=== PATIENT | male | born 1950 | race Caucasian/White ===

== ENCOUNTER → 2017-12-14 11:14 | Outpatient (CLI) | payer MEDICARE, OTHER, SELFPAY ==
[2017-12-14 11:35] LABS: Bacteria Urine None Seen; RBC Urine None Seen (0-5/HPF); WBC Urine None Seen (0-5/HPF)
[2017-12-14 12:05] LABS: Appearance Urine UA CLEAR; Bilirubin Urine UA NEGATIVE (NEGATIVE); Color Urine UA YELLOW; Glucose Urine UA NEGATIVE (Normal); Ketones Urine UA TRACE (NEGATIVE); Leukocyte Esterase Urine UA NEGATIVE (NEGATIVE); Nitrite Urine UA Negative (Negative); Occult Blood Urine UA NEGATIVE (Negative); Protein Urine UA NEGATIVE (Negative); Specific Gravity Urine UA 1.025 (1.000-1.035); Urobilinogen Urine UA 0.2 E.U./dL (0.2)
[2017-12-14 12:35] LABS: Add Manual Diff / Slide Review NO; Basophils Percent Auto 1.2 % (0-2); Eosinophils Percent Auto 1.9 % (2-4); Hematocrit 42.3 % (41-53); Hemoglobin 14.2 g/dL (13.5-17.5); Lymphocytes Percent Auto 23.5 % (25-40); Mean Corpuscular HGB Conc 33.7 % (30-36); Mean Corpuscular Hemoglobin 30.9 PG (26-34); Mean Corpuscular Volume 91.6 fL (80-100); Monocytes Percent Auto 9.6 % (3-14); Neutrophils Absolute Auto 3600 /uL (3000-5900); Neutrophils Percent Auto 63.8 % (50-75); Platelet Count 189 X10^3/uL (150-400); Red Blood Cell Count 4.62 X10^6/uL (4.5-5.9); Red Cell Distribution Width 13.8 % (11.6-14.8); White Blood Cell Count 5.7 X10^3/uL (4.5-11.0)
[2017-12-14 12:42] LABS: Culture Indicated Urine Cult Not Indicated; Urine Comments Microscopic Normal
[2017-12-14 13:15] LABS: BUN Creatinine Ratio 20.9 (6-22); Blood Urea Nitrogen 23 mg/dL (9-20); Calcium 9.7 mg/dL (8.4-10.2); Carbon Dioxide 25 mmol/L (22-32); Chloride 103 mmol/L (98-107); Estimated Glomerular Filt Rate > 60.0 mL/min (>60); Glucose 87 mg/dL (80-110); HEMOLYSIS < 15 (0-50); Potassium 4.5 mmol/L (3.4-5.1); Sodium 140 mmol/L (137-145)
[2017-12-14 14:23] LABS: Hemoglobin A1C% w Est Avg Glu 5.4 % (4.0-6.0)
== END ==
PROVIDERS: PCP Family Medicine; Visit Provider Orthopaedic Surgery
DX: Z01.818 Encounter for other preprocedural examination (principal); Z01.812 Encounter for preprocedural laboratory examination; N39.9 Disorder of urinary system, unspecified; R73.09 Other abnormal glucose
CPT/HCPCS: 36415; 80048; 81001; 83036; 85025; 93005

== ENCOUNTER 2018-01-30 10:19 | Inpatient (IN) | payer MEDICARE, OTHER, SELFPAY ==
[2018-01-17 07:17] VITALS: BMI 29.2
[2018-01-30] VITALS (14 sets, daily range): BP systolic 111–151; BP diastolic 65–87; PULSE 45–63; RESP 12–20; TEMP 36.1–36.8; O2SAT 92–99; BMI 29.2
--- NOTE | 2018-01-30 06:00 | DI.RAD.S_ITS ---
PROCEDURE: XR HIP W PEL IF DONE RT 2V INDICATIONS: prosthesis placement TECHNIQUE: AP pelvis and lateral view of the right hip acquired. COMPARISON: [facility] [place], [place], XR PELVIS WITH LATERAL HIP RIGHT, 01/23/2018, 16:16. FINDINGS: Bones: Patient is status post right hip arthroplasty, with hardware components in expected positions. The hip joint appears congruent. The visualized bony structures appear intact. Soft tissues: Overlying postoperative changes are noted. No suspicious soft tissue densities. IMPRESSION: 1. Expected postsurgical changes status post right hip arthroplasty. Dictated by: Mal Gonzales M.D. on 01/30/2018 at 18:00 Approved by: Mal Gonzales M.D. on 01/30/2018 at 18:01
[2018-01-30] MEDS: LACTATED RINGERS 1,000 ML 42 ML IV ×2 (11:00→14:56)
[2018-01-30] MEDS: ACETAMINOPHEN 325 MG TABLET 975 MG PO ×2 (11:13→21:38)
[2018-01-30] MEDS: PREGABALIN 75 MG CAPSULE PO (11:13)
[2018-01-30] MEDS: CELECOXIB 200 MG CAPSULE PO (11:13)
[2018-01-30] MEDS: VANCOMYCIN 1,000 MG/200 ML FROZ.PIGGY 200 MG IV (11:35)
--- NOTE | 2018-01-30 12:35 | PM.PREOP ---
Pre-operative Note Interval Note Pre-op Check: Yes History & Physical Reviewed by Physician and Yes Exam Performed Changes: No
--- NOTE | 2018-01-30 12:45 | P.OP_ITS ---
Operative Date/Time/Diagnoses Date of procedure: 01/30/18 Time of procedure: 12:54 Pre-op diagnosis: Right hip osteoarthritis Post-op diagnosis: same Procedure & Clinicians Procedure: right total hip arthroplasty Same procedure as scheduled: Yes Indications: The patient has had progressively worsening right hip pain with radiographic changes consistent with arthritis. Non-operative management has failed and the patient has requested total hip replacement. The risks, benefits and alternatives to surgery were discussed with the patient prior to proceeding. Risks discussed included, but were not limited to, failure to relieve pain, leg length discrepancy, dislocation, stiffness, infection, nerve damage, deep venous thrombosis, pulmonary embolism, stroke, coma, heart attack, permanent paralysis and , as well as the potential need for eventual revision of the prosthetic. Surgeon: Delmy Robertson Curling Machine Operator: Carmina Lott Anesthesia Type: General and Spinal Operative Notes Findings: severe right hip osteoarthritis, adequate stability Closure Type: primary Specimen(s): none sent Implants & Drains: Robertsno and Nephew R3 60, anthology 9 standard offset, +0 x 36 Estimated Blood Loss (mL): 300 Blood products transfused: none Procedure in detail: The patient was brought to the operating room. Patient was carefully positioned in the supine position. Time-out was performed and antibiotics were given. Anesthesia was induced. He was positioned in the on the table in order to allow hyperextension of the hip. Bilateral lower extremities were prepped and draped in a standard sterile fashion. An anterior incision on the right hip was made 1 fingerbreadth lateral to the anterior superior iliac spine and extended distally towards the greater trochanter. Dissection was carried out through skin and subcutaneous tissues. The skin and subcutaneous tissues were carefully injected with Marcaine with epi. Superficial hemostasis was achieved. The fascia over the tensor fascia demetrio was defined and incised with a knife. Two Allis clamps were used to grasp the fascia. Tensor fascia demetrio was retracted laterally. A gelpi retractor was placed. Dissection was carried out down along the neck. The circumflex vessels were carefully identified and cauterized with the Aqua Mantis. There was good visualization of the femoral neck. A Cobra was placed superior to the neck and the gluteus fibers were carefully stripped from that superior aspect of the capsule. A 2nd retractor was placed along the inferior aspect of the neck. The rectus insertion along the capsule was released. A 3rd retractor that was then gently placed over the rim of the acetabulum under the rectus. Capsule was carefully incised and released from the intertrochanteric line circumferentially superior to the mid sagittal line and inferiorly to the mid sagittal line until the lesser trochanter was palpable. A tag stitch was placed both in the superior and inferior limb of the capsular insertion. Along the acetabulum capsule was also released up to the mid sagittal 12:00 position. Portion of the labrum was resected. A saw was used to perform an osteotomy at the level of the intertrochanteric line and the junction of the superior femoral neck leaving approximately 1 finger breath of residual inferior neck above the lesser trochanter. A 2nd cut was made along the femoral neck at the base of the head and a napkin ring of neck was removed. Corkscrew was placed in the femoral head and the head was removed without difficulty. Retractors were then repositioned around the acetabulum. Residual labrum was resected and additional osteophytes were removed. A Reamer that was 4 mm below the templated size was placed by hand in the acetabulum and it was reamed to centralize the acetabulum. It was then reamed up to 2 under the templated size fluoroscopy was brought in to confirm the position of the reaming and depth of reaming. I reamed 1 under the anticipated size and touch the rim with line to line reaming. A trial cup was placed and noted that it was appropriately sized and fluoroscopy confirmed position and depth. The component was open and inserted without difficulty fluoroscopic imaging was used to confirm that the cup had been adequately seated and was well positioned. Neutral poly liner was placed. The cup was tested and noted to be stable. Attention was then directed to the femur. The femur was gently hyperextended additional capsular release was performed as needed in order to allow adequate visualization of the proximal femur with elevation of the femur. Patient was placed in a hyperextended slightly abducted position with maximum external rotation. Box osteotome was used to check for any residual neck as well as sclerotic bone along the trochanter. [place] pepper was placed in the femur. Additional broaching was performed. Canal finer was used to determine the alignment of the canal and position. Size 1 broach was placed. The canal was then appropriately broached up to the templated size as long as there was adequate stability of the broach and serial advancement of the broach without excessive impingement. Specific attention was directed at avoiding varus attempting to direct the distal aspect of the approach more anteriorly and avoiding excessive anteversion. Trial reduction showed acceptable range of motion, good stability, no posterior impingement, roman catholic of leg length and appropriate lateral shuck. I also hyperflexed the hip and checked that there was no impingement anteriorly and there was good stability with flexion, abduction and internal rotation. Final neutral poly was placed without difficulty. Marcaine and Exparel were injected.. The stem was placed without difficulty. Repeat trial reduction and x-ray showed acceptable overall position, length, and no evidence of the femoral fracture. Final head was placed. Wound was meticulously irrigated with normal saline. The hip was reduced and additional Exparel and Marcaine were injected. The capsule was closed with interrupted stitches. The fascia of the tensor was closed with interrupted and running Vicryl. No drain was placed. Any tensor fascia demetrio muscle that appeared to be contused or injured which was a minimal amount was carefully resected. Capsule around the tensor was injected with Exparel and Marcaine. The skin was closed with barbed stitches for the subcutaneous tissue and skin. We also used surgical glue. The wound was dressed sterilely. Brief Betadine soak was also used and was meticulously irrigated with normal saline. Patient was transferred to recovery room in satisfactory condition. Complications: none Condition: stable Disposition: Acute Care Plan for aftercare: The patient will be maintained on a standard total hip replacement protocol with weight bearing as tolerated and anterior hip precautions. The patient will receive Eliquis and sequential compression devices for DVT prophylaxis. The patient will be discharged home when safe for the home environment.
[2018-01-30] MEDS: CEFAZOLIN 2 GM/100 ML FROZ.PIGGY IV ×2 (13:05→21:42)
[2018-01-30] MEDS: LIDOCAINE 1% W/EPI INJ 20 ML INJ (13:51)
--- NOTE | 2018-01-30 14:07 | SUR.OPER ---
Supine, head on pillow, torso on pink pad positioner. Iliac crest at flex of foot end of table. Gel roll under operative hip. Both arms secured on arm boards <90 degrees abduction.
[2018-01-30] MEDS: BUPIVACAINE 0.25% W/ EPI VIAL 50 ML INJ (14:16)
[2018-01-30] MEDS: BUPIVACAINE LIPOSOME 266 MG/20 ML VIAL INJ (14:17)
[2018-01-30] MEDS: POVIDONE-IODINE 15 ML, SODIUM CHLORIDE 0.9% 250 ML TOP (14:17)
[2018-01-30] MEDS: LACTATED RINGERS 1,000 ML 125 ML IV (18:30)
[2018-01-30] MEDS: ONDANSETRON 4 MG/2 ML INJ IV (21:38)
[2018-01-30] MEDS: DOCUSATE 100 MG CAPSULE PO (21:38)
[2018-01-30] MEDS: ASPIRIN EC 81 MG TABLET PO (21:38)
[2018-01-30] MEDS: PANTOPRAZOLE 20 MG TABLET PO (21:39)
[2018-01-30] MEDS: TELMISARTAN 40 MG TABLET PO (21:39)
[2018-01-30] MEDS: MAGNESIUM OXIDE 400 MG TABLET PO (21:48)
[2018-01-31 00:34] VITALS: BP 131/76; PULSE 58; RESP 18; TEMP 36.5; O2SAT 98
[2018-01-31] MEDS: LACTATED RINGERS 1,000 ML 125 ML IV (02:15)
[2018-01-31 04:00] VITALS: BP 125/77; PULSE 63; RESP 18; TEMP 36.2; O2SAT 96
[2018-01-31] MEDS: CEFAZOLIN 2 GM/100 ML FROZ.PIGGY IV (05:16)
[2018-01-31 06:00] LABS: Hematocrit 40.6 % (41-53); Hemoglobin 13.6 g/dL (13.5-17.5)
[2018-01-31 08:00] VITALS: BP 140/81; PULSE 62; RESP 16; TEMP 36.4; O2SAT 96
[2018-01-31] MEDS: ASPIRIN EC 81 MG TABLET PO (09:11)
[2018-01-31] MEDS: MULTIVITAMIN 1 TABLET 1 TAB PO (09:11)
[2018-01-31] MEDS: ACETAMINOPHEN 325 MG TABLET 975 MG PO (09:11)
[2018-01-31] MEDS: dilTIAZem CD 180 MG CAP 360 MG PO (09:11)
[2018-01-31] MEDS: AMLODIPINE 5 MG TABLET PO (09:12)
[2018-01-31] MEDS: DOCUSATE 100 MG CAPSULE PO (09:12)
--- NOTE | 2018-01-31 09:15 | PT.IIE ---
Current Diagnoses Unilateral primary osteoarthritis, right hip (01/30/18) Surgery Performed Operation Date: 01/30/18 12:00 Actual Procedures p Total Hip Arthroplasty/Anterior Approach(Right) - Delmy Robertson MD Surgical History (Last Updated 01/17/18 @ 08:10 by Asmita Gibbons, RN) History of tonsillectomy (Acute) Hx of colonoscopy with polypectomy (Acute ~2016) Medical History (Last Updated 01/17/18 @ 08:25 by Asmita Gibbons RN) Basal cell carcinoma (Acute) Deep vein thrombosis (DVT) of distal vein of right lower extremity (Acute ~2017) Edema (Acute) GERD (gastroesophageal reflux disease) (Acute) HTN (hypertension) (Acute) Hepatitis B (Acute ~1981) Hyperlipidemia (Acute) Low back pain (Acute) Osteoarthritis (Acute) Paroxysmal A-fib (Acute) Precancerous lesion (Acute) Ruptured Bakers cyst (Acute) Scab (Acute) Spermatocele (Acute) Stroke (Acute) Physical Therapy Inpatient Evaluation/Re-Eval M1 PT/OT-IP Prior Functional Status Start: 01/31/18 12:09 Freq: NEEDED Status: Active Protocol: Document 01/31/18 09:15 AB (Rec: 01/31/18 12:33 AB [id number]) Medical Review Prior Functional Status Medical History Reviewed Yes Communication able to make needs known Mobility and Gait pt stated that he is independent with all mobilities and ambulation without AD Social History Household Members spouse Living Arrangements House Number of Floors (Floors) Two Floors Number of Stairs To Enter/Railing? 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 M2 PT-IP Current Condition Start: 01/31/18 12:09 Freq: NEEDED Status: Active Protocol: Document 01/31/18 09:15 AB (Rec: 01/31/18 12:33 [id number]) Physical Therapy Current Condition Current Condition Evaluation Date 01/31/18 Treatment Diagnosis s/p R RAQUEL anterior approach Onset Date 01/30/18 Precautions Anterior Hip Precautions No Hip Extension No Hip External Rotation M3 PT-IP Subjective Start: 01/31/18 12:09 Freq: NEEDED Status: Active Protocol: Document 01/31/18 09:15 AB (Rec: 01/31/18 12:33 AB [id number]) Subjective Physical Therapy Visit Type Type Initial Evaluation Visit Start Time 09:15 Visit Stop Time 10:20 Total Visit Minutes 65 Number of DRY KILN OPERATOR HELPER Visits 0 Physical Therapy Visit Comments Patient Comments pt agreeable to do PT Therapy Pain Assessment Pain When Pain Assessed At Rest Pain Present Pain Present Pain Reported Location Right Hip Intensity 1 Scale Used Numeric (1 - 10) Pain Management Techniques Apply Cold Timing of Activity with Medications M4 PT-IP Mobility and Gait Start: 01/31/18 12:09 Freq: NEEDED Status: Active Protocol: Document 01/31/18 09:15 AB (Rec: 01/31/18 12:33 AB [id number]) PT-Bed Mobility Assessment Supine to Sit Supine to Sit Standby Assistance Sit to Supine Sit to Supine Standby Assistance Scooting Scooting to Edge of Bed Standby Assistance PT-Transfer Assessment Sit to and From Stand Sit to and from Stand Standby Assistance Equipment Transfer Assistive Device Gait Belt Front Wheeled Walker Orthotic/Prosthetic Devices or Brace: No Transfers Transfer Destination Chair Transfer Technique Stand Step Pivot Transfer Ability Level of Assist Standby Assistance Comments Mobility Comments bed mobility training conducted. pt completed supine<>sit x 4 reps requiring SBA and cues initially but after a few reps, pt was able to complete without cues. completed sit <>stand x 5 reps with cues Gait Assessment Gait Gait Assistance Required: Standby Assistance Distance (Feet) (feet) 100 Able to Maintain Weight Bearing Status Yes During Gait Assistive Devices Assistive Device Gait Belt Front Wheeled Walker Orthotic/Prosthetic Devices or Brace: No Gait Deviations General Gait Pattern Decreased Stride Length Decreased Feet Clearance Factors Limiting Gait Function Factors Limiting Gait Function Decreased Activity Tolerance Decreased Strength Pain Poor Balance Stair Climbing Assessment Evaluation Level of Assist On Stairs Standby Assistance Devices Stair Climbing Assistive Devices Left Railing Technique/Endurance Stair Climbing Direction Ascend and Descend Stair Climbing Technique Step to Step Number of Steps Climbed 3 Query Text: Stair Climbing Set # Repetitions (reps) 2 PT-Balance Assessment Sitting Balance and Reactions Static Sitting Balance Ability Good Dynamic Sitting Balance Ability Good Standing Balance and Reactions Static Standing Balance Ability Good Dynamic Standing Balance Ability Fair M5 PT-IP Objective Assessments Start: 01/31/18 12:09 Freq: NEEDED Status: Active Protocol: Document 01/31/18 09:15 AB (Rec: 01/31/18 12:33 AB [id number]) Orientation Orientation/Cognition Level of Alertness Alert Orientation Name Age Birthday Month Date Year Day of Week Place Situation Safety Awareness Understands Safety Issues Gross Range of Motion Lower Extremity ROM Assessment Within Functional Limits Strength Lower Extremity Strength Assessment Right Impaired Knee 4-/5 Sensation Assessment Sensation Gross Sensation WNL Muscle Tone Muscle Tone WNL Yes M6 PT-IP Treatment Start: 01/31/18 12:09 Freq: NEEDED Status: Active Protocol: Document 01/31/18 09:15 AB (Rec: 01/31/18 12:33 AB [id number]) Physical Therapy Treatment Education Education Provided Precautions Weight Bearing Status Post-Op Packet Safety M7 PT-IP Assessment and Plan Start: 01/31/18 12:09 Freq: NEEDED Status: Active Protocol: Document 01/31/18 09:15 AB (Rec: 01/31/18 12:33 AB [id number]) PT Summary Assessment and Plan Potential Rehabilitation Potential Good Status of Condition at Evaluation Stable Summary Impairments Pain ROM Strength Balance Coordination Sensation Tone Cognition Bed Mobility Transfers Gait Activity Tolerance Assessment Summary pt doing well with mobility and requiring SBA with mobility. pt plans to go home this afternoon with sposue to assist him. Goals Bed Mobility Goal Independent Transfer Goal Independent Gait Goal Independent Gait Distance 200 Other Goals up/down 3 steps using L rail ascending mod I Days to Meet Goals 2 Frequency of Treatment Frequency Of Treatment Twice a Day Treatment Plan Physical Therapy Treatment Plan Bed Mobility Training Transfer Training Gait Training Therapeutic Exercise Balance Retraining Post Op Education Discharge Planning Hot or Cold Pack Neuromuscular Re-ed Coordination Retraining Manual Therapy Recommendations To Nursing Amount of Assist Needed Standby Assistance Discharge Recommendations PT Discharge Recommendations Home with Assistance Outpatient PT
--- NOTE | 2018-01-31 09:32 | P.DS_ITS ---
History of Present Illness Date Patient Seen: 01/31/18 Chief complaint: [id number] Narrative: Patient is seen bedside with Dr. Robertson status post right anterior hip replacement postop day 1. Patient is doing well his pain is well controlled as and he has been walking to the bathroom. He has not been seen by Physical therapy yet. He denies chest pain shortness of breath and calf pain. Discharge Providers Date of admission: 01/30/18 10:19 Primary care physician: Bibiana Nogueira DO Consults: 01/30/18 18:07 Consult to Discharge Planning Routine Comment: Consult to Physical Therapy Evaluate & Treat Comment: anterior precautions Physician Instructions: post op RAQUEL protocol Consult to Respiratory Therapy Evaluate & Treat Comment: Physician Instructions: Evaluate and treat Discharge provider: Fanny Pedraza PA-C Summary Discharge Diagnosis: Right hip osteoarthritis Hospital Course: Patient was admitted to the hospital status post right anterior hip replacement on 01/30/2018. Patient tolerated the procedure well no major complications. He was transferred to the surgical floor where seen by physical therapy who recommended that he be discharged home with outpatient PT. Patient was stable and ready for discharge on 01/31/2018 Status at Discharge Cognitive/behavioral status at discharge: Alert and oriented x4 Functional status at discharge: uses cane/walker Overall status at discharge: patient is progressing back to baseline Time Spent with Patient Less than 30 minutes Exam Vital Signs (past 8 hours): - 01/31/18 04:00 01/31/18 08:00 Temperature 97.1 F L 97.5 F L Pulse Rate 63 62 Respiratory Rate 18 16 Blood Pressure 125/77 140/81 Pulse Oximetry 96 96 Oxygen Delivery Method Room Air Oxygen Flow Rate 0 Narrative Exam Narrative: Well-developed well-nourished no acute distress. Patient alert and oriented x3. Examination right hip dressing is clean dry and intact with no discharge. He has full range of motion of the knee and ankle and his calves are soft and compressible. He is neurovascularly intact in this extremity. Objective Labs Result Diagrams: 01/31/18 05:40 Labs: Laboratory Results - last 24 hr 01/31/18 05:40 Hgb 13.6 Hct 40.6 L Discharge Plan Discharge Plan Patient Disposition: Home Discharge Med Rec/Prescriptions Prescriptions: New acetaminophen 325 mg Tablet 975 mg PO TID Qty: 0 RF: 0 tramadol 50 mg Tablet 50 mg PO QID PRN (Reason: Moderate Pain) Qty: 0 RF: 0 Continue telmisartan [Micardis] 40 MG tablet 40 mg PO QPM Qty: 0 RF: 0 magnesium oxide 500 MG tablet 500 mg PO BEDTIME Qty: 0 RF: 0 omeprazole 20 MG capsule,delayed release(DR/EC) 20 mg PO QPM Qty: 0 RF: 0 biotin 2,500 MCG capsule 5,000 mcg PO Q DAY Qty: 0 RF: 0 [CINNAMON] 500 mg PO BID Qty: 0 RF: 0 multivitamin [Multiple Vitamins] 1 EACH tablet 1 tab PO QDAY Qty: 0 RF: 0 [TUMERIC] Q DAY Qty: 0 RF: 0 hyalur ac-chond sul-colg II-AA [Hyaluronic Acid (chond-collgn)] 1 EACH capsule 3 cap PO QDAY Qty: 0 RF: 0 diltiazem HCl 360 mg Capsule,Extended Release 24hr 360 mg PO DAILY RF: 0 amlodipine 5 mg Tablet 5 mg PO DAILY RF: 0 rosuvastatin 5 mg Tablet 2.5 mg PO DAILY RF: 0 apixaban [Eliquis] 5 mg Tablet 5 mg PO BID RF: 0 Discontinued acetaminophen [Tylenol Extra Strength] 500 mg Tablet 1,000 mg PO Q6H PRN (Reason: Pain) RF: 0 Follow up/Referrals: Delmy Robertson MD [Physician] - 02/04/18 9:40 am (Follow up with Fanny Pedraza PA-C at the [facility] office.) Provider Discharge Instructions Diet: Diet as Tolerated Activity: Weightbearing as tolerated, use walker to ambulate, follow anterior hip precautions Cold/Heat Therapy: Apply ice to surgical site for 20 minutes at a time at least hourly while awake Skin/Wound/Dressing Care Report to your healthcare provider any signs of infection, such as:: chills, fever, night sweats, increased pain and unusual drainage Dressing: Keep dressing clean, dry, and intact. May shower with dressing on. No soaking the dressing. Visit Report/Discharge Packet Instructions: DI for Hip Replacement Visit Report Forms: Stroke Signs & Symptoms Discharge Data Primary Care Provider: Bibiana Nogueira Attending Provider: Delmy Robertson Admit Date/Time: 01/30/18 10:19 Quality VTE Deep Vein Thrombosis/Pulmonary Embolism Present on Admission: No
[2018-01-31] MEDS: TRAMADOL 50 MG TABLET PO (09:44)
--- NOTE | 2018-01-31 10:20 | PC.NURSE ---
Brayden is rating his pain 2/10 this AM on plain Tylenol. Just given Tramadol as he was starting to work w/ PT. VSS. R ant. hip aqaucel drsg. clean/dry/intact. Ortho checks WDL. Anticipate he will D/C to home later today.
[2018-01-31 12:00] VITALS: BP 128/81; PULSE 62; RESP 16; TEMP 36.4; O2SAT 96
--- NOTE | 2018-01-31 14:03 | CM.DANOTE ---
Discharge Planning/Care Management CM Discharge Assessment Start: 01/31/18 13:59 Freq: Status: Active Protocol: Document 01/31/18 14:00 (Rec: 01/31/18 14:02 [id number]) Discharge Planning Assessment Assigned Ceramic Saw Tender ROCAEL [place] Advance Directives? Yes Advance Directives on File No History Provided By Patient Medical Record Has Patient been admitted in last 30 No days? 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 Independent with ADL's Yes Is patient alert and oriented? Yes Barriers to Discharge No Discharge Plan Home Transportation Arrangement /[facility] to provie transportation. Referrals Initiated None needed Whiteboard Updated in Patient Room with Yes name and ext. # of Ceramic Saw Tender Please Provide Date Initial DC 01/31/18 Assessment Was Performed
--- NOTE | 2018-01-31 15:11 | PC.NURSE ---
Brayden was discharged in stable condition to home with via POV. Disch in w.chair. Verbalizes adq. pain control and understanding of MEAD path and all disch. teaching. He states he has already filled his prescriptions.
== END 2018-01-31 13:15 | disposition home or self-care (01) | DRG 470 ==
PROVIDERS: Admitting Provider Orthopaedic Surgery; PCP Family Medicine; Visit Provider Orthopaedic Surgery
PROC: 0SR902Z Replacement of Right Hip Joint with Metal on Polyethylene Synthetic Substitute, Open Approach (ICD-10-PCS; CPT 27130; principal; 2018-01-30 12:00)
DX: M16.11 Unilateral primary osteoarthritis, right hip (principal); I82.431 Acute embolism and thrombosis of right popliteal vein; I10 Essential (primary) hypertension; E78.5 Hyperlipidemia, unspecified; Z86.73 Personal history of transient ischemic attack (TIA), and cerebral infarction without residual deficits; Z79.01 Long term (current) use of anticoagulants; I48.0 Paroxysmal atrial fibrillation
CPT/HCPCS: 36415; 73502; 76001; 85014; 85018; 97116; 97161; 97530; C1776; C9290; J0690; J2250; J2274; J2405; J2704; J3010; J3370

== ENCOUNTER 2019-06-01 04:19 | Emergency (ER) | payer MEDICARE, OTHER, SELFPAY ==
[2018-01-30 17:40] VITALS: BMI 29.2
[2019-06-01] VITALS (7 sets, daily range): BP systolic 125–139; BP diastolic 86–114; PULSE 80–155; RESP 20–28; TEMP 36.3; O2SAT 94–97; BMI 32.8
--- NOTE | 2019-06-01 04:21 | ED.ABDPAIN ---
HPI - Abdominal Pain General Chief Complaint: Chest Pain Stated Complaint: severe epigastric pain since 12 am Time Seen by Provider: 06/01/19 04:21 Source: patient and family Mode of arrival: Ambulatory Limitations: no limitations History of Present Illness HPI narrative: 69-year-old male nonsmoker with history of AFib and hypertension presents with his in the chief complaint of a severe epigastric pressure that started at about midnight. He denies provocation, palliation or radiation. He denies associated symptoms such as shortness of breath, nausea, vomiting or others. He denies any history of the same. He denies any changes in his medications or missed doses for quite sometime. He denies recent travel or injury. Patient tried taking some antacids as well as Pepto which provided no relief MD complaint: abdominal pain Onset (ago): hour(s) Pain Consistency: constant Location: epigastric Quality: aching Radiation: none Relieving factors: nothing Exacerbating factors: nothing Associated symptoms: denies other symptoms Related Data Home Medications Medication Instructions Recorded Confirmed [CINNAMON] 500 mg PO BID #0 03/08/17 01/17/18 [TUMERIC] Q DAY #0 03/08/17 biotin 5,000 mcg PO Q DAY #0 03/08/17 01/30/18 magnesium oxide 500 mg PO BEDTIME #0 03/08/17 01/17/18 multivitamin [Multiple Vitamins] 1 tab PO QDAY #0 03/08/17 01/17/18 omeprazole 20 mg PO QPM #0 03/08/17 01/30/18 telmisartan [Micardis] 40 mg PO QPM #0 03/08/17 01/30/18 hyalur ac-chond sul-colg II-AA 3 cap PO QDAY #0 06/03/17 01/17/18 [Hyaluronic Acid (chond-collgn)] amlodipine 5 mg PO DAILY 01/17/18 01/30/18 apixaban [Eliquis] 5 mg PO BID 01/17/18 01/30/18 diltiazem HCl 360 mg PO DAILY 01/17/18 01/30/18 rosuvastatin 2.5 mg PO DAILY 01/17/18 01/30/18 Previous Rx's Medication Instructions Recorded acetaminophen 975 mg PO TID #0 tab 01/31/18 tramadol 50 mg PO QID PRN #0 tab 01/31/18 Allergies Allergy/AdvReac Type Severity Reaction Status Date / Time [id number]-[id number] Reductase AdvReac Severe Muscle Verified 01/17/18 07:44 Inhibitor cramps, myalgia Review of Systems Constitutional Constitutional: Denies chills, Denies fatigue, Denies fever(s), Denies frequent falls, Denies lethargy and Denies weakness Eyes Eyes: Denies change in vision, Denies eye discharge, Denies irritation and Denies loss of vision ENT Ears, Nose, Mouth, and Throat: Denies change in voice, Denies dizziness, Denies neck pain, Denies sore throat and Denies throat swelling Cardiovascular Cardiovascular: Reports chest pain, Denies irregular heart rhythm, Denies lightheadedness, Denies palpitations, Denies dyspnea, Denies dyspnea on exertion and Denies orthopnea Respiratory Respiratory: Denies cough, Denies dyspnea, Denies dyspnea on exertion and Denies wheezing Gastrointestinal Gastrointestinal: Reports abdominal pain, Denies change in bowel habits, Denies diarrhea, Denies nausea and Denies vomiting Genitourinary Genitourinary: Denies hematuria, Denies flank pain, Denies urinary incontinence and Denies urinary urgency Musculoskeletal Musculoskeletal: Denies back pain, Denies muscle weakness, Denies neck pain, Denies numbness and Denies tingling Integumentary/Breasts Skin/Breast: Denies pruritus, Denies erythema, Denies rash and Denies wounds Neurologic Neurologic: Denies behavioral changes, Denies confusion, Denies dizziness, Denies frequent falls, Denies loss of vision, Denies numbness, Denies tingling and Denies weakness Psychiatric Psychiatric: Denies anxiety, Denies behavioral changes, Denies confusion, Denies depression, Denies homicidal ideation and Denies suicidal ideation Endocrine Endocrine: Denies fatigue, Denies flushing and Denies palpitations Hematologic/Lymphatic Hematologic/Lymphatic: Denies easy bruising Allergic/Immunologic Allergic/Immunologic: Denies urticaria, Denies throat swelling and Denies wheezing Patient History Medical History (Updated 06/01/19 @ 06:26 by Aldair Armando DO) Basal cell carcinoma (Acute) Deep vein thrombosis (DVT) of distal vein of right lower extremity (Acute ~2017) Edema (Acute) GERD (gastroesophageal reflux disease) (Acute) Hepatitis B (Acute ~1981) HTN (hypertension) (Acute) Hyperlipidemia (Acute) Low back pain (Acute) Osteoarthritis (Acute) Paroxysmal A-fib (Acute) Precancerous lesion (Acute) Ruptured Bakers cyst (Acute) Scab (Acute) Spermatocele (Acute) Stroke (Acute) Surgical History (Updated 01/17/18 @ 08:10 by Asmita Gibbons RN) History of tonsillectomy (Acute) Hx of colonoscopy with polypectomy (Acute ~2016) Social History household members: spouse and family Smoking Status: Never smoker alcohol intake: current Smoking Status: Never smoker alcohol intake frequency: a few times a week Substance Use Type: does not use Exam Narrative Exam Narrative: GENERAL: [69] year old patient appears stated age. Well-nourished, well-developed patient, in mild distress. HEAD: Atraumatic. Normocephalic. EYES: Pupils equal round and reactive. Extraocular motions intact. No scleral icterus. No injection or drainage. ENT: Nose without bleeding, purulent drainage. Throat without erythema, tonsillar hypertrophy or exudate. Airway patent. NECK: Trachea midline. Non tender CARDIOVASCULAR: Tachycardic and irregular rhythm without murmurs, gallops, or rubs. RESPIRATORY: Clear to auscultation. Breath sounds equal bilaterally. No wheezes, rales, or rhonchi. GASTROINTESTINAL: Abdomen soft, non-tender, nondistended. EXTREMITIES: No edema or joint tenderness. BACK: Nontender without deformity or crepitance. No flank tenderness. NEURO: AOx3. SKIN: No rash or erythema of visible areas Initial Vital Signs Initial Vital Signs: Vital Signs Temperature 97.4 F L 06/01/19 04:25 Pulse Rate 155 H 06/01/19 04:25 Respiratory Rate 28 H 06/01/19 04:25 Blood Pressure 125/102 H 06/01/19 04:25 Pulse Oximetry 97 06/01/19 04:25 Course Course Course Narrative: Patient's discomfort rather quickly with seems to be closely linked to his rapid AFib. He is a good candidate for electrical cardioversion and was consented. He was given Cardizem 10 mg IV which slowed his rate into the 80s and 90s. A modified Valsalva maneuver was performed which did not convert him. He was watched for 1 hour after the Cardizem was pushed and we elected not to perform cardioversion because his heart rate stayed in the 80s and 90s and he remained completely asymptomatic once his rate was controlled. 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 Orders Ordered: ED Orders 06/01/19 04:25 XR chest 1V Stat EKG-12 Lead Stat 06/01/19 05:17 Complete Blood Count AUTO DIFF Stat Comprehensive Metabolic Panel Stat Lipase Stat Troponin & CK Cardiac Panel Stat Sodium Chloride (Normal Saline 0.9%) 1,000 mls @ 150 mls/hr IV CONT JOVITA Last Admin: 06/01/19 04:41 Dose: 150 mls/hr Documented by: PAULINA Discontinued Medications Aspirin (Aspirin Chew) 324 mg PO NOW ONE Stop: 06/01/19 04:26 Last Admin: 06/01/19 04:41 Dose: 324 mg Documented by: PAULINA Diltiazem HCl (Cardizem) 10 mg IV NOW ONE Stop: 06/01/19 04:50 Last Admin: 06/01/19 05:18 Dose: 10 mg Documented by: CAREY Ketorolac Tromethamine (Toradol) 60 mg IM NOW ONE Stop: 06/01/19 04:32 Last Admin: 06/01/19 06:14 Dose: Not Given Documented by: PAULINA Vital Signs Vital signs: Vital Signs - 8 hr 06/01/19 04:25 06/01/19 04:30 06/01/19 05:00 Temperature 97.4 F L Pulse Rate 155 H 127 H 115 H Respiratory Rate 28 H 23 23 Blood Pressure 125/102 H Blood Pressure [Right Arm] 138/114 H 133/94 H Pulse Oximetry 97 97 96 06/01/19 05:18 06/01/19 05:30 06/01/19 06:00 Temperature Pulse Rate 117 H 91 H 86 Respiratory Rate 22 21 Blood Pressure 133/94 H Blood Pressure [Right Arm] 136/86 139/86 Pulse Oximetry 96 94 06/01/19 06:07 Temperature Pulse Rate 80 Respiratory Rate 20 Blood Pressure Blood Pressure [Right Arm] 139/86 Pulse Oximetry 96 MDM - Abdominal Pain Lab Data Result diagrams: 06/01/19 05:17 06/01/19 05:17 Labs: Lab Results 06/01/19 06/01/19 Range/Units 05:17 05:17 WBC 6.0 (4.5-11.0) X10^3/uL RBC 4.87 (4.5-5.9) X10^6/uL Hgb 15.1 (13.5-17.5) g/dL Hct 44.1 (41-53) % MCV 90.5 (80-100) fL MCH 30.9 (26-34) PG MCHC 34.2 (30-36) % RDW 14.1 (11.6-14.8) % Plt Count 174 (150-400) X10^3/uL Neut % (Auto) 65.8 (50-75) % Lymph % (Auto) 18.2 L (25-40) % [place] % (Auto) 8.4 (3-14) % Eos % (Auto) 2.6 (2-4) % Baso % (Auto) 5.0 H (0-2) % Neut # (Auto) 4000 (9548-3794) /uL Lymph # (Auto) 1100 (6341-2060) /uL [place] # (Auto) 500 (0-900) /uL Eos # (Auto) 200 (0-450) /uL Baso # (Auto) 300 H (0-100) /uL Sodium 137 (137-145) mmol/L Potassium 4.3 (3.4-5.1) mmol/L Chloride 104 (98-107) mmol/L Carbon Dioxide 21 L (22-32) mmol/L BUN 22 H (9-20) mg/dL Creatinine 1.10 (0.66-1.25) mg/dL Estimated GFR > 60.0 (>60) mL/min BUN/Creatinine Ratio 20.0 (6-22) Glucose 121 H (80-110) mg/dL Calcium 9.4 (8.4-10.2) mg/dL Total Bilirubin 0.4 (0.2-1.3) mg/dL AST 28 (17-59) IU/L ALT 30 (<50) IU/L Alkaline Phosphatase 92 (38-126) U/L Total Creatine Kinase 121 (55-170) U/L CK-MB (CK-2) 1.84 (<2.37) ng/mL CK-MB (CK-2) Rel Index 1.5 (1.5-5.0) % Troponin I < 0.012 (0.01-0.034) ng/mL Total Protein 7.0 (6.3-8.2) g/dL Albumin 4.3 (3.5-5.0) g/dL Globulin 2.7 (1.7-4.1) g/dL Albumin/Globulin Ratio 1.6 (1.0-2.8) Lipase 32 (23-300) U/L ECG Data Interpretation: Atrial fibrillation in the 140s without signs of ischemia such as ST depression or elevation. Discharge Plan Departure Patient Disposition: Home Clinical Impression: Atrial fibrillation with rapid ventricular response Instructions: DI for Atrial Fibrillation Activity Restrictions/Additional Instructions: *You have been diagnosed with [rapid atrial fibrillation with chest pain] *What to do: *Take medications as directed *Follow up with your primary care provider in 2-3 days, call for an appointment. Let them know you were seen in the Emergency Department and that we ask that you be seen in follow up *Return to ER if you should have any new, worsening or concerning symptoms, such as [return of chest pain, shortness of breath, dizziness, lightheadedness or other bothersome symptoms] Prescriptions: No Action telmisartan [Micardis] 40 MG tablet 40 mg PO QPM Qty: 0 RF: 0 magnesium oxide 500 MG tablet 500 mg PO BEDTIME Qty: 0 RF: 0 omeprazole 20 MG capsule,delayed release(DR/EC) 20 mg PO QPM Qty: 0 RF: 0 biotin 2,500 MCG capsule 5,000 mcg PO Q DAY Qty: 0 RF: 0 [CINNAMON] 500 mg PO BID Qty: 0 RF: 0 multivitamin [Multiple Vitamins] 1 EACH tablet 1 tab PO QDAY Qty: 0 RF: 0 [TUMERIC] Q DAY Qty: 0 RF: 0 hyalur ac-chond sul-colg II-AA [Hyaluronic Acid (chond-collgn)] 1 EACH capsule 3 cap PO QDAY Qty: 0 RF: 0 diltiazem HCl 360 mg Capsule,Extended Release 24hr 360 mg PO DAILY RF: 0 amlodipine 5 mg Tablet 5 mg PO DAILY RF: 0 rosuvastatin 5 mg Tablet 2.5 mg PO DAILY RF: 0 apixaban [Eliquis] 5 mg Tablet 5 mg PO BID RF: 0 acetaminophen 325 mg Tablet 975 mg PO TID Qty: 0 RF: 0 tramadol 50 mg Tablet 50 mg PO QID PRN (Reason: Moderate Pain) Qty: 0 RF: 0 Referrals: Bibiana Nogueira DO [Primary Care Provider] -
--- NOTE | 2019-06-01 04:25 | DI.RAD.S_ITS ---
PROCEDURE: XR CHEST 1V INDICATIONS: chest pain TECHNIQUE: One view of the chest was acquired. COMPARISON: None. FINDINGS: Surgical changes and devices: None. Lungs and pleura: Lung volumes are decreased bilaterally. Minimal left basilar opacities likely representing atelectasis. No pneumothorax. Possible small left pleural effusion as suggested by hazy opacity of the left costophrenic angle. Mediastinum: Mediastinal contours appear normal. Heart size is normal. Bones and chest wall: No suspicious bony lesions. Overlying soft tissues appear unremarkable. IMPRESSION: Decreased lung volumes with minimal left basilar opacities, favored to represent atelectasis. Airspace disease not excluded. Possible small left pleural effusion. Dictated by: Fly Guajardo M.D. on 06/01/2019 at 9:52 Approved by: Fly Guajardo M.D. on 06/01/2019 at 10:58
[2019-06-01] MEDS: ASPIRIN 81 MG CHEW TAB 324 MG PO (04:41)
[2019-06-01] MEDS: SODIUM CHLORIDE 0.9% 1,000 ML 150 ML IV (04:41)
[2019-06-01] MEDS: dilTIAZem 5 MG/ML SDV 10 MG IV (05:18)
[2019-06-01 05:44] LABS: Add Manual Diff / Slide Review NO; Basophils Absolute Auto 300 /uL (0-100); Eosinophils Absolute Auto 200 /uL (0-450); Eosinophils Percent Auto 2.6 % (2-4); Hematocrit 44.1 % (41-53); Hemoglobin 15.1 g/dL (13.5-17.5); Lymphocytes Absolute Auto 1100 /uL (1100-4500); Lymphocytes Percent Auto 18.2 % (25-40); Mean Corpuscular HGB Conc 34.2 % (30-36); Mean Corpuscular Hemoglobin 30.9 PG (26-34); Mean Corpuscular Volume 90.5 fL (80-100); Monocytes Absolute Auto 500 /uL (0-900); Monocytes Percent Auto 8.4 % (3-14); Neutrophils Absolute Auto 4000 /uL (1500-7000); Neutrophils Percent Auto 65.8 % (50-75); Platelet Count 174 X10^3/uL (150-400); Red Blood Cell Count 4.87 X10^6/uL (4.5-5.9); Red Cell Distribution Width 14.1 % (11.6-14.8)
[2019-06-01 05:49] LABS: Alanine Aminotransferase 30 IU/L (<50); Albumin 4.3 g/dL (3.5-5.0); Albumin Globulin Ratio 1.6 (1.0-2.8); Alkaline Phosphatase 92 U/L (38-126); Aspartate Aminotransferase 28 IU/L (17-59); Bilirubin Total 0.4 mg/dL (0.2-1.3); Blood Urea Nitrogen 22 mg/dL (9-20); Calcium 9.4 mg/dL (8.4-10.2); Carbon Dioxide 21 mmol/L (22-32); Chloride 104 mmol/L (98-107); Creatine Kinase 121 U/L (55-170); Estimated Glomerular Filt Rate > 60.0 mL/min (>60); Globulin 2.7 g/dL (1.7-4.1); Glucose 121 mg/dL (80-110); HEMOLYSIS 21 (0-50); Lipase 32 U/L (23-300); Potassium 4.3 mmol/L (3.4-5.1); Sodium 137 mmol/L (137-145)
[2019-06-01 06:00] LABS: Troponin I < 0.012 ng/mL (0.01-0.034)
[2019-06-01 06:04] LABS: CKMB % Relative Index 1.5 % (1.5-5.0); Creatine Kinase MB 1.84 ng/mL (<2.37)
== END 2019-06-01 06:35 | disposition home or self-care (01) ==
PROVIDERS: Emergency Provider Emergency Medicine; PCP Family Medicine
DX: I48.20 Chronic atrial fibrillation, unspecified (principal); R10.13 Epigastric pain; R07.9 Chest pain, unspecified
CPT/HCPCS: 71045; 80053; 82550; 82553; 83690; 84484; 85025; 93005; 96361; 96374; 99284; 99285

== ENCOUNTER 2019-07-13 02:23 | Emergency (ER) | payer MEDICARE, OTHER, SELFPAY ==
[2018-01-30 17:40] VITALS: BMI 29.2
[2019-07-13] VITALS (10 sets, daily range): BP systolic 99–168; BP diastolic 67–115; PULSE 69–160; RESP 16–24; TEMP 36.4; O2SAT 94–98; BMI 32.1
--- NOTE | 2019-07-13 02:29 | ED_ITS ---
HPI - Chest Pain General Chief Complaint: Chest Pain Stated Complaint: chest pain Time Seen by Provider: 07/13/19 02:23 Source: patient and family Mode of arrival: Ambulatory Limitations: no limitations History of Present Illness HPI narrative: 69-year-old male nonsmoker with history of rapid atrial fibrillation on Eliquis presents with his son and a chief complaint of a sudden onset palpitations and some epigastric discomfort which started at about 9:00 p.m. tonight. He states he took his medications but later in the day than he normally would because he does not work tomorrow. He is not dizzy nor weak or l ightheaded. He admits to palpitations but denies significant chest pain or shortness of breath. He states he has not missed any of his doses of Eliquis in the past 3 weeks but is very sure that his symptoms started only about 6 hours ago. MD complaint: chest pain Onset (ago): hour(s) Duration: constant Onset: during rest Pain location: epigastric Severity: moderate Related Data Home Medications Medication Instructions Recorded Confirmed [CINNAMON] 500 mg PO BID #0 03/08/17 01/17/18 [TUMERIC] Q DAY #0 03/08/17 biotin 5,000 mcg PO Q DAY #0 03/08/17 01/30/18 magnesium oxide 500 mg PO BEDTIME #0 03/08/17 01/17/18 multivitamin [Multiple Vitamins] 1 tab PO QDAY #0 03/08/17 01/17/18 omeprazole 20 mg PO QPM #0 03/08/17 01/30/18 telmisartan [Micardis] 40 mg PO QPM #0 03/08/17 01/30/18 hyalur ac-chond sul-colg II-AA 3 cap PO QDAY #0 06/03/17 01/17/18 [Hyaluronic Acid (chond-collgn)] amlodipine 5 mg PO DAILY 01/17/18 01/30/18 apixaban [Eliquis] 5 mg PO BID 01/17/18 01/30/18 diltiazem HCl 360 mg PO DAILY 01/17/18 01/30/18 rosuvastatin 2.5 mg PO DAILY 01/17/18 01/30/18 Previous Rx's Medication Instructions Recorded acetaminophen 975 mg PO TID #0 tab 01/31/18 tramadol 50 mg PO QID PRN #0 tab 01/31/18 Allergies Allergy/AdvReac Type Severity Reaction Status Date / Time [id number]-Ita Reductase AdvReac Severe Muscle Verified 01/17/18 07:44 Inhibitor cramps, myalgia Review of Systems Constitutional Constitutional: Denies chills, Denies fatigue, Denies fever(s), Denies frequent falls, Denies lethargy and Denies weakness Eyes Eyes: Denies change in vision, Denies eye discharge, Denies irritation and Denies loss of vision ENT Ears, Nose, Mouth, and Throat: Denies change in voice, Denies dizziness, Denies neck pain, Denies sore throat and Denies throat swelling Cardiovascular Cardiovascular: Denies chest pain, Reports irregular heart rhythm, Denies lightheadedness, Reports palpitations, Denies dyspnea, Denies dyspnea on exertion and Denies orthopnea Respiratory Respiratory: Denies cough, Denies dyspnea, Denies dyspnea on exertion and Denies wheezing Gastrointestinal Gastrointestinal: Denies abdominal pain, Denies change in bowel habits, Denies diarrhea, Denies nausea and Denies vomiting Genitourinary Genitourinary: Denies hematuria, Denies flank pain, Denies urinary incontinence and Denies urinary urgency Musculoskeletal Musculoskeletal: Denies back pain, Denies muscle weakness, Denies neck pain, Denies numbness and Denies tingling Integumentary/Breasts Skin/Breast: Denies pruritus, Denies erythema, Denies rash and Denies wounds Neurologic Neurologic: Denies behavioral changes, Denies confusion, Denies dizziness, Denies frequent falls, Denies loss of vision, Denies numbness, Denies tingling and Denies weakness Psychiatric Psychiatric: Denies anxiety, Denies behavioral changes, Denies confusion, Denies depression, Denies homicidal ideation and Denies suicidal ideation Endocrine Endocrine: Denies fatigue, Denies flushing and Reports palpitations Hematologic/Lymphatic Hematologic/Lymphatic: Denies easy bruising Allergic/Immunologic Allergic/Immunologic: Denies urticaria, Denies throat swelling and Denies wheezing Patient History Medical History Basal cell carcinoma (Acute) Deep vein thrombosis (DVT) of distal vein of right lower extremity (Acute ~2017) Edema (Acute) GERD (gastroesophageal reflux disease) (Acute) Hepatitis B (Acute ~1981) HTN (hypertension) (Acute) Hyperlipidemia (Acute) Low back pain (Acute) Osteoarthritis (Acute) Paroxysmal A-fib (Acute) Precancerous lesion (Acute) Ruptured Bakers cyst (Acute) Scab (Acute) Spermatocele (Acute) Stroke (Acute) Surgical History History of tonsillectomy (Acute) Hx of colonoscopy with polypectomy (Acute ~2017) Social History household members: spouse and family Smoking Status: Never smoker alcohol intake: current Smoking Status: Never smoker alcohol intake frequency: a few times a week Substance Use Type: does not use Exam Narrative Exam Narrative: GENERAL: [69] year old patient appears stated age. Well- nourished, well-developed patient, in mild distress. HEAD: Atraumatic. Normocephalic. EYES: Pupils equal round and reactive. Extraocular motions intact. No scleral icterus. No injection or drainage. ENT: Nose without bleeding, purulent drainage. Throat without erythema, tonsillar hypertrophy or exudate. Airway patent. NECK: Trachea midline. Non tender CARDIOVASCULAR: Tachycardic and irregular rhythm without murmurs, gallops, or r ubs. RESPIRATORY: Clear to auscultation. Breath sounds equal bilaterally. No wheezes, rales, or rhonchi. GASTROINTESTINAL: Abdomen soft, non-tender, nondistended. EXTREMITIES: No edema or joint tenderness. BACK: Nontender without deformity or crepitance. No flank tenderness. NEURO: AOx3. SKIN: No rash or erythema of visible areas Initial Vital Signs Initial Vital Signs: Vital Signs Temperature 97.6 F 07/13/19 02:36 Pulse Rate 160 H 07/13/19 02:36 Respiratory Rate 18 07/13/19 02:36 Blood Pressure 168/115 H 07/13/19 02:36 Pulse Oximetry 96 07/13/19 02:36 Procedures Cardioversion Consent Signed: Yes Indication: rapid Afib Stability: Stable Number of attempts (shocks): 1 Joules used: 150 Cardiac rhythm post-cardioversion: NSR Procedural Sedation Patient Age: Patient is 5yrs or older Consent signed: Yes Time out performed: Yes Indication: cardioversion ASA Class: II Mallampati Airway Classification: Class II Preparation: quality assurance monitor applied, pulse oximeter, capnometry used, supplemental O2 applied, suction/airway equipment at bedside and IV secured IV Propofol dose (mg): 60 Intraservice time/total sedation time (min): 10 ED Sedation Level: Moderate (Concious) Patient Tolerated Procedure: Well Complications: none Course Orders Ordered: ED Orders 07/13/19 EKG-12 Lead Stat EKG-12 Lead Stat 07/13/19 02:40 Complete Blood Count AUTO DIFF Stat Comprehensive Metabolic Panel Stat Lipase Stat Troponin & CK Cardiac Panel Stat Sodium Chloride (Normal Saline 0.9%) 1,000 mls @ 150 mls/hr IV CONT JOVITA Last Admin: 07/13/19 03:07 Dose: 150 mls/hr Documented by: PAULINA Discontinued Medications Diltiazem HCl (Cardizem) 10 mg IV NOW ONE Stop: 07/13/19 02:45 Last Admin: 07/13/19 03:08 Dose: 10 mg Documented by: PAULINA Propofol (Diprivan) 105 mg 1 mg/kg (105 mg) IV NOW ONE Stop: 07/13/19 05:13 Last Admin: 07/13/19 05:41 Dose: 70 mg Documented by: CAREY Vital Signs Vital signs: Vital Signs - 8 hr 07/13/19 02:36 07/13/19 03:08 07/13/19 03:30 Temperature 97.6 F Pulse Rate 160 H 143 H 115 H Respiratory Rate 18 16 Blood Pressure 168/115 H 146/82 H Blood Pressure [Left Arm] 99/67 Pulse Oximetry 96 97 07/13/19 05:29 07/13/19 05:30 07/13/19 05:35 Temperature Pulse Rate 139 H 120 H 135 H Respiratory Rate 18 20 21 Blood Pressure Blood Pressure [Left Arm] 143/91 H 146/92 H 115/72 Pulse Oximetry 97 98 94 07/13/19 05:37 07/13/19 05:40 07/13/19 05:50 Temperature Pulse Rate 73 73 69 Respiratory Rate 18 22 24 Blood Pressure Blood Pressure [Left Arm] 118/75 118/79 122/84 Pulse Oximetry 94 98 98 MDM - Chest Pain Lab Data Result diagrams: 07/13/19 02:40 07/13/19 02:40 Labs: Lab Results 02/17/20 02/17/20 Range/Units 02:40 02:40 WBC 7.8 (4.5-11.0) X10^3/uL RBC 4.91 (4.5-5.9) X10^6/uL Hgb 15.2 (13.5-17.5) g/dL Hct 44.7 (41-53) % MCV 91.0 (80-100) fL MCH 30.9 (26-34) PG MCHC 34.0 (30-36) % RDW 14.5 (11.6-14.8) % Plt Count 185 (150-400) X10^3/uL Neut % (Auto) 61.2 (50-75) % Lymph % (Auto) 25.6 (25-40) % [place] % (Auto) 6.6 (3-14) % Eos % (Auto) 2.4 (2-4) % Baso % (Auto) 4.2 H (0-2) % Neut # (Auto) 4800 (5011-7141) /uL Lymph # (Auto) 2000 (1035-4496) /uL [place] # (Auto) 500 (0-900) /uL Eos # (Auto) 200 (0-450) /uL Baso # (Auto) 300 H (0-100) /uL Sodium 140 (137-145) mmol/L Potassium 4.2 (3.4-5.1) mmol/L Chloride 106 (98-107) mmol/L Carbon Dioxide 22 (22-32) mmol/L BUN 26 H (9-20) mg/dL Creatinine 1.20 (0.66-1.25) mg/dL Estimated GFR > 60.0 (>60) mL/min BUN/Creatinine Ratio 21.7 (6-22) Glucose 121 H (80-110) mg/dL Calcium 9.6 (8.4-10.2) mg/dL Total Bilirubin 0.5 (0.2-1.3) mg/dL AST 28 (17-59) IU/L ALT 31 (<50) IU/L Alkaline Phosphatase 118 (38-126) U/L Total Creatine Kinase 134 (55-170) U/L CK-MB (CK-2) 1.49 (<2.37) ng/mL CK-MB (CK-2) Rel Index 1.1 L (1.5-5.0) % Troponin I < 0.012 (0.01-0.034) ng/mL Total Protein 7.8 (6.3-8.2) g/dL Albumin 4.7 (3.5-5.0) g/dL Globulin 3.1 (1.7-4.1) g/dL Albumin/Globulin Ratio 1.5 (1.0-2.8) Lipase 48 (23-300) U/L ECG Data Interpretation: Rapid AFib, 145, no ST segmental elevations or depressions. Discharge Plan Departure Patient Disposition: Home Clinical Impression: Atrial fibrillation with rapid ventricular response Activity Restrictions/Additional Instructions: *You have been diagnosed with [rapid atrial fibrillation, with procedural sedation and cardioversion] *What to do: * continue to take medications as directed *Follow up with your primary care provider in 2-3 days, call for an appointment. Let them know you were seen in the Emergency Department and that we ask that you be seen in follow up *Return to ER if you should have any new, worsening or concerning symptoms Prescriptions: No Action telmisartan [Micardis] 40 MG tablet 40 mg PO QPM Qty: 0 RF: 0 magnesium oxide 500 MG tablet 500 mg PO BEDTIME Qty: 0 RF: 0 omeprazole 20 MG capsule,delayed release(DR/EC) 20 mg PO QPM Qty: 0 RF: 0 biotin 2,500 MCG capsule 5,000 mcg PO Q DAY Qty: 0 RF: 0 [CINNAMON] 500 mg PO BID Qty: 0 RF: 0 multivitamin [Multiple Vitamins] 1 EACH tablet 1 tab PO QDAY Qty: 0 RF: 0 [TUMERIC] Q DAY Qty: 0 RF: 0 hyalur ac-chond sul-colg II-AA [Hyaluronic Acid (chond-collgn)] 1 EACH capsule 3 cap PO QDAY Qty: 0 RF: 0 diltiazem HCl 360 mg Capsule,Extended Release 24hr 360 mg PO DAILY RF: 0 amlodipine 5 mg Tablet 5 mg PO DAILY RF: 0 rosuvastatin 5 mg Tablet 2.5 mg PO DAILY RF: 0 apixaban [Eliquis] 5 mg Tablet 5 mg PO BID RF: 0 acetaminophen 325 mg Tablet 975 mg PO TID Qty: 0 RF: 0 tramadol 50 mg Tablet 50 mg PO QID PRN (Reason: Moderate Pain) Qty: 0 RF: 0 Referrals: Bibiana Nogueira DO [Primary Care Provider] -
[2019-07-13 02:54] LABS: Add Manual Diff / Slide Review NO; Basophils Absolute Auto 300 /uL (0-100); Basophils Percent Auto 4.2 % (0-2); Eosinophils Absolute Auto 200 /uL (0-450); Eosinophils Percent Auto 2.4 % (2-4); Hematocrit 44.7 % (41-53); Hemoglobin 15.2 g/dL (13.5-17.5); Lymphocytes Absolute Auto 2000 /uL (1100-4500); Lymphocytes Percent Auto 25.6 % (25-40); Mean Corpuscular Hemoglobin 30.9 PG (26-34); Monocytes Absolute Auto 500 /uL (0-900); Monocytes Percent Auto 6.6 % (3-14); Neutrophils Absolute Auto 4800 /uL (1500-7000); Neutrophils Percent Auto 61.2 % (50-75); Platelet Count 185 X10^3/uL (150-400); Red Blood Cell Count 4.91 X10^6/uL (4.5-5.9); Red Cell Distribution Width 14.5 % (11.6-14.8); White Blood Cell Count 7.8 X10^3/uL (4.5-11.0)
[2019-07-13 02:58] LABS: Alanine Aminotransferase 31 IU/L (<50); Albumin 4.7 g/dL (3.5-5.0); Albumin Globulin Ratio 1.5 (1.0-2.8); Alkaline Phosphatase 118 U/L (38-126); Aspartate Aminotransferase 28 IU/L (17-59); BUN Creatinine Ratio 21.7 (6-22); Bilirubin Total 0.5 mg/dL (0.2-1.3); Blood Urea Nitrogen 26 mg/dL (9-20); Calcium 9.6 mg/dL (8.4-10.2); Carbon Dioxide 22 mmol/L (22-32); Chloride 106 mmol/L (98-107); Creatine Kinase 134 U/L (55-170); Estimated Glomerular Filt Rate > 60.0 mL/min (>60); Globulin 3.1 g/dL (1.7-4.1); Glucose 121 mg/dL (80-110); HEMOLYSIS 17 (0-50); Lipase 48 U/L (23-300); Potassium 4.2 mmol/L (3.4-5.1); Sodium 140 mmol/L (137-145); Total Protein 7.8 g/dL (6.3-8.2)
[2019-07-13] MEDS: SODIUM CHLORIDE 0.9% 1,000 ML 150 ML IV (03:07)
[2019-07-13] MEDS: dilTIAZem 5 MG/ML SDV 10 MG IV (03:08)
[2019-07-13 03:09] LABS: Troponin I < 0.012 ng/mL (0.01-0.034)
[2019-07-13 03:13] LABS: CKMB % Relative Index 1.1 % (1.5-5.0); Creatine Kinase MB 1.49 ng/mL (<2.37)
--- NOTE | 2019-07-13 03:31 | PC.NURSE ---
Pt remains a fib RVT after dilt push
[2019-07-13] MEDS: propofoL 200 MG/20 ML VIAL 105 MG IV (05:41)
== END 2019-07-13 06:39 | disposition home or self-care (01) ==
PROVIDERS: Emergency Provider Emergency Medicine; PCP Family Medicine
DX: I48.20 Chronic atrial fibrillation, unspecified (principal)
CPT/HCPCS: 36415; 80053; 82550; 82553; 83690; 84484; 85025; 92960; 93005; 96361; 96374; 99152; 99285; J2704

== ENCOUNTER 2019-10-19 07:03 | Observation (INO) | payer MEDICARE, OTHER, SELFPAY ==
[2018-01-30 17:40] VITALS: BMI 29.2
[2019-10-19] VITALS (12 sets, daily range): BP systolic 129–214; BP diastolic 74–106; PULSE 44–58; RESP 14–20; TEMP 36.2–36.8; O2SAT 95–97; BMI 32.6
--- NOTE | 2019-10-19 07:18 | DI.RAD.S_ITS ---
PROCEDURE: XR CHEST 1V INDICATIONS: chest pain TECHNIQUE: One view of the chest was acquired. COMPARISON: None. FINDINGS: Surgical changes and devices: None. Lungs and pleura: Patchy left basilar atelectasis. Lungs otherwise clear. No pleural effusions or pneumothorax. Mediastinum: Mediastinal contours appear normal. Heart size is normal. Bones and chest wall: No suspicious bony lesions. Overlying soft tissues appear unremarkable. IMPRESSION: Patchy left basilar atelectasis. Dictated by: Dejan Cline M.D. on 10/19/2019 at 6:50 Approved by: Djean Cline M.D. on 10/19/2019 at 6:50
--- NOTE | 2019-10-19 07:20 | ED.CHESTPAIN ---
HPI - Chest Pain General Chief Complaint: Chest Pain Stated Complaint: speigastric pain 30mins Time Seen by Provider: 10/19/19 07:05 Source: patient Mode of arrival: Ambulatory Limitations: no limitations History of Present Illness HPI narrative: 69M nonsmoker with history of AFib on eliquis presents with his in the chief complaint a burning epigastric pain that woke him up from sleep 30 minutes prior to arrival. He denies any provocation, radiation or exertional symptoms. He took some Pepto and states that is improving and went from a 9/10 down to a 5/10. He denies any recent medication change or dietary indiscretions. He denies dizziness, weakness or lightheadedness. He denies any recent exertional symptoms or exercise intolerance. He denies recent injuries, travel or history of clot. MD complaint: chest pain Onset (ago): minute(s) Duration: improved Onset: during rest Pain location: epigastric Severity: severe Quality: other Pain radiation: none Relieving factors: antacids Exacerbating factors: supine Treatments prior to arrival chest pain: other Related Data Home Medications Medication Instructions Recorded Confirmed magnesium oxide 500 mg PO BEDTIME #0 03/08/17 10/19/19 multivitamin [Multiple Vitamins] 1 tab PO QAM #0 03/08/17 10/19/19 omeprazole 20 mg PO QPM #0 03/08/17 10/19/19 telmisartan [Micardis] 40 mg PO QPM #0 03/08/17 10/19/19 Hyaluronic Acid (chond-collgn) 3 cap PO QDAY #0 06/03/17 10/19/19 Eliquis 5 mg PO BID 01/17/18 10/19/19 amlodipine 5 mg PO QAM 01/17/18 10/19/19 rosuvastatin 5 mg PO QPM 01/17/18 10/19/19 cholecalciferol (vitamin D3) 125 mcg PO QAM 10/19/19 10/19/19 [Vitamin D3] ezetimibe 10 mg PO QAM 10/19/19 10/19/19 sotalol 120 mg PO BID 10/19/19 10/19/19 Allergies Allergy/AdvReac Type Severity Reaction Status Date / Time Iqudley-Fon-Ffj Reductase AdvReac Severe Muscle Verified 01/17/18 07:44 Inhibitor cramps, myalgia Review of Systems Constitutional Constitutional: Denies chills, Denies fatigue, Denies fever(s), Denies frequent falls, Denies lethargy and Denies weakness Eyes Eyes: Denies change in vision, Denies eye discharge, Denies irritation and Denies loss of vision ENT Ears, Nose, Mouth, and Throat: Denies change in voice, Denies dizziness, Denies neck pain, Denies sore throat and Denies throat swelling Cardiovascular Cardiovascular: Denies chest pain, Denies irregular heart rhythm, Denies lightheadedness, Denies palpitations, Denies dyspnea, Denies dyspnea on exertion and Denies orthopnea Respiratory Respiratory: Denies cough, Denies dyspnea, Denies dyspnea on exertion and Denies wheezing Gastrointestinal Gastrointestinal: Reports abdominal pain, Denies change in bowel habits, Reports dyspepsia, Denies diarrhea, Denies nausea and Denies vomiting Genitourinary Genitourinary: Denies hematuria, Denies flank pain, Denies urinary incontinence and Denies urinary urgency Musculoskeletal Musculoskeletal: Denies back pain, Denies muscle weakness, Denies neck pain, Denies numbness and Denies tingling Integumentary/Breasts Skin/Breast: Denies pruritus, Denies erythema, Denies rash and Denies wounds Neurologic Neurologic: Denies behavioral changes, Denies confusion, Denies dizziness, Denies frequent falls, Denies loss of vision, Denies numbness, Denies tingling and Denies weakness Psychiatric Psychiatric: Denies anxiety, Denies behavioral changes, Denies confusion, Denies depression, Denies homicidal ideation and Denies suicidal ideation Endocrine Endocrine: Denies fatigue, Denies flushing and Denies palpitations Hematologic/Lymphatic Hematologic/Lymphatic: Denies easy bruising Allergic/Immunologic Allergic/Immunologic: Denies urticaria, Denies throat swelling and Denies wheezing Patient History Medical History Basal cell carcinoma (Acute) Deep vein thrombosis (DVT) of distal vein of right lower extremity (Acute ~2017) Edema (Acute) GERD (gastroesophageal reflux disease) (Acute) Hepatitis B (Acute ~1981) HTN (hypertension) (Acute) Hyperlipidemia (Acute) Low back pain (Acute) Osteoarthritis (Acute) Paroxysmal A-fib (Acute) Precancerous lesion (Acute) Ruptured Bakers cyst (Acute) Scab (Acute) Spermatocele (Acute) Stroke (Acute) Surgical History History of tonsillectomy (Acute) Hx of colonoscopy with polypectomy (Acute ~2017) Social History household members: spouse and family Smoking Status: Never smoker alcohol intake: current Smoking Status: Never smoker alcohol intake frequency: a few times a week Substance Use Type: does not use Exam Narrative Exam Narrative: GENERAL: [69] year old patient appears stated age. Well-nourished, well-developed patient, in mild distress. HEAD: Atraumatic. Normocephalic. EYES: Pupils equal round and reactive. Extraocular motions intact. No scleral icterus. No injection or drainage. ENT: Nose without bleeding, purulent drainage. Throat without erythema, tonsillar hypertrophy or exudate. Airway patent. NECK: Trachea midline. Non tender CARDIOVASCULAR: Regular rate and rhythm without murmurs, gallops, or rubs. RESPIRATORY: Clear to auscultation. Breath sounds equal bilaterally. No wheezes, rales, or rhonchi. GASTROINTESTINAL: Abdomen soft, non-tender, nondistended. EXTREMITIES: No edema or joint tenderness. BACK: Nontender without deformity or crepitance. No flank tenderness. NEURO: AOx3. SKIN: No rash or erythema of visible areas Initial Vital Signs Initial Vital Signs: Vital Signs Temperature 98.3 F 10/19/19 07:11 Pulse Rate 58 L 10/19/19 07:11 Respiratory Rate 14 10/19/19 07:11 Blood Pressure 214/101 H 10/19/19 07:11 Pulse Oximetry 97 10/19/19 07:11 Scores HEART Score Heart Score history: Slightly Suspicious Heart Score EKG: Normal Heart Score Age: > or = 65 years old Heart Score risk factors: 1-2 risk factors Heart Score troponin: < or = to normal limit Heart Score Total: 3 Course Orders Ordered: ED Orders 10/19/19 07:17 Complete Blood Count AUTO DIFF Stat Comprehensive Metabolic Panel Stat Lipase Stat Troponin & CK Cardiac Panel Stat 10/19/19 07:18 XR chest 1V Stat 10/19/19 09:15 Troponin I Stat Sodium Chloride (Normal Saline 0.9%) 1,000 mls @ 150 mls/hr IV CONT JOVITA Last Admin: 10/19/19 07:28 Dose: 150 mls/hr Documented by: ABEL Discontinued Medications Apixaban (Eliquis) 5 mg PO NOW ONE Stop: 10/19/19 09:43 Last Admin: 10/19/19 09:53 Dose: 5 mg Documented by: JOSE ALFREDO Aspirin (Aspirin Chew) 324 mg PO NOW ONE Stop: 10/19/19 07:19 Last Admin: 10/19/19 07:27 Dose: 324 mg Documented by: ABEL Al Hydrox/Mg Hydrox/Simethicone 20 ml/ Lidocaine HCl 15 ml 0 ml PO NOW ONE Stop: 10/19/19 07:19 Last Admin: 10/19/19 07:27 Dose: 35 ml Documented by: ABEL Pantoprazole Sodium (Protonix) 40 mg IV NOW ONE Stop: 10/19/19 07:19 Last Admin: 10/19/19 07:27 Dose: 40 mg Documented by: ABEL Reevaluation(s) Reevaluation #1: patient continues to be pain free. Consultations Consultation #1: call to Cardio (Maribel). Patient needs admission and provocative testing. No indication for transfer. Consultation #2: call to hospitalist. Time: 09:06 Vital Signs Vital signs: Vital Signs - 8 hr 10/19/19 07:11 10/19/19 07:51 10/19/19 08:00 Temperature 98.3 F Pulse Rate 58 L 48 L 48 L Respiratory Rate 14 16 16 Blood Pressure 214/101 H Blood Pressure [Left Arm] 171/84 H 155/82 H Pulse Oximetry 97 96 96 10/19/19 08:57 10/19/19 09:00 Temperature Pulse Rate 44 L 47 L Respiratory Rate 18 18 Blood Pressure Blood Pressure [Left Arm] 149/75 H 164/85 H Pulse Oximetry 96 96 MDM - Chest Pain Lab Data Result diagrams: 10/19/19 07:17 10/19/19 07:17 Labs: Lab Results 10/19/19 10/19/19 Range/Units 07:17 07:17 WBC 5.3 (4.5-11.0) X10^3/uL RBC 4.78 (4.5-5.9) X10^6/uL Hgb 15.0 (13.5-17.5) g/dL Hct 43.1 (41-53) % MCV 90.0 (80-100) fL MCH 31.3 (26-34) PG MCHC 34.8 (30-36) % RDW 14.2 (11.6-14.8) % Plt Count 166 (150-400) X10^3/uL Neut % (Auto) 52.5 (50-75) % Lymph % (Auto) 30.1 (25-40) % [place] % (Auto) 12.1 (3-14) % Eos % (Auto) 3.4 (2-4) % Baso % (Auto) 1.9 (0-2) % Neut # (Auto) 2800 (6871-3561) /uL Lymph # (Auto) 1600 (3172-1226) /uL [place] # (Auto) 600 (0-900) /uL Eos # (Auto) 200 (0-450) /uL Baso # (Auto) 100 (0-100) /uL Sodium 138 (137-145) mmol/L Potassium 4.2 (3.4-5.1) mmol/L Chloride 106 (98-107) mmol/L Carbon Dioxide 23 (22-32) mmol/L BUN 24 H (9-20) mg/dL Creatinine 0.90 (0.66-1.25) mg/dL Estimated GFR > 60.0 (>60) mL/min BUN/Creatinine Ratio 26.7 H (6-22) Glucose 118 H (80-110) mg/dL Calcium 9.3 (8.4-10.2) mg/dL Total Bilirubin 0.5 (0.2-1.3) mg/dL AST 32 (17-59) IU/L ALT 31 (<50) IU/L Alkaline Phosphatase 104 (38-126) U/L Total Creatine Kinase 125 (55-170) U/L CK-MB (CK-2) 2.02 (<2.37) ng/mL CK-MB (CK-2) Rel Index 1.6 (1.5-5.0) % Troponin I < 0.012 (0.01-0.034) ng/mL Total Protein 7.6 (6.3-8.2) g/dL Albumin 4.3 (3.5-5.0) g/dL Globulin 3.3 (1.7-4.1) g/dL Albumin/Globulin Ratio 1.3 (1.0-2.8) Lipase 47 (23-300) U/L Imaging Data Chest x-ray: Radiologist's Impression: [address] [address] XRay Report Signed Patient: Brayden Jackson RMR#: [id number] : 1Acct:[id number] Age/Sex: 69 / MDate of Service: 10/19/19 Loc: ED Accession Number: [id number] Procedure: XR chest 1V Ordering Provider: Aldair Armando D.O. PROCEDURE: XR CHEST 1V INDICATIONS: chest pain TECHNIQUE: One view of the chest was acquired. COMPARISON: None. FINDINGS: Surgical changes and devices: None. Lungs and pleura: Patchy left basilar atelectasis. Lungs otherwise clear. No pleural effusions or pneumothorax. Mediastinum: Mediastinal contours appear normal. Heart size is normal. Bones and chest wall: No suspicious bony lesions. Overlying soft tissues appear unremarkable. IMPRESSION: Patchy left basilar atelectasis. Dictated by: Dejan Cline M.D. on 10/19/2019 at 6:50 Approved by: Dejan Cline M.D. on 10/19/2019 at 6:50 ECG Data Attestation: I personally reviewed and interpreted this ECG as follows: Prior ECG tracings: available for review Interpretation: EKG is bradycardic sinus rhythm rate [58 ] and free of any signs of ischemia or ectopy. No ST segmental elevation or depression. No T wave inversions Discharge Plan Departure Patient Disposition: Admitted as Observation Clinical Impression: Chest pain Qualifiers: Chest pain type: unspecified Qualified Code(s): R07.9 - Chest pain, unspecified Admit Date/Time: 10/19/19 09:29 Admit Provider: Katiana Valle
[2019-10-19 07:26] LABS: Add Manual Diff / Slide Review NO; Basophils Absolute Auto 100 /uL (0-100); Basophils Percent Auto 1.9 % (0-2); Eosinophils Absolute Auto 200 /uL (0-450); Eosinophils Percent Auto 3.4 % (2-4); Hematocrit 43.1 % (41-53); Lymphocytes Absolute Auto 1600 /uL (1100-4500); Lymphocytes Percent Auto 30.1 % (25-40); Mean Corpuscular HGB Conc 34.8 % (30-36); Mean Corpuscular Hemoglobin 31.3 PG (26-34); Monocytes Absolute Auto 600 /uL (0-900); Monocytes Percent Auto 12.1 % (3-14); Neutrophils Absolute Auto 2800 /uL (1500-7000); Neutrophils Percent Auto 52.5 % (50-75); Platelet Count 166 X10^3/uL (150-400); Red Blood Cell Count 4.78 X10^6/uL (4.5-5.9); Red Cell Distribution Width 14.2 % (11.6-14.8); White Blood Cell Count 5.3 X10^3/uL (4.5-11.0)
[2019-10-19] MEDS: PANTOPRAZOLE 40 MG VIAL IV (07:27)
[2019-10-19] MEDS: ASPIRIN 81 MG CHEW TAB 324 MG PO (07:27)
[2019-10-19] MEDS: MAG HYDROX/ALUMINUM/SIMETH SUS 20 ML, LIDOCAINE VISCOUS 2% 15 ML PO (07:27)
[2019-10-19] MEDS: SODIUM CHLORIDE 0.9% 1,000 ML 150 ML IV (07:28)
[2019-10-19 07:37] LABS: Alanine Aminotransferase 31 IU/L (<50); Albumin 4.3 g/dL (3.5-5.0); Albumin Globulin Ratio 1.3 (1.0-2.8); Alkaline Phosphatase 104 U/L (38-126); Aspartate Aminotransferase 32 IU/L (17-59); BUN Creatinine Ratio 26.7 (6-22); Bilirubin Total 0.5 mg/dL (0.2-1.3); Blood Urea Nitrogen 24 mg/dL (9-20); Calcium 9.3 mg/dL (8.4-10.2); Carbon Dioxide 23 mmol/L (22-32); Chloride 106 mmol/L (98-107); Creatine Kinase 125 U/L (55-170); Estimated Glomerular Filt Rate > 60.0 mL/min (>60); Globulin 3.3 g/dL (1.7-4.1); Glucose 118 mg/dL (80-110); HEMOLYSIS 22 (0-50); Lipase 47 U/L (23-300); Potassium 4.2 mmol/L (3.4-5.1); Sodium 138 mmol/L (137-145); Total Protein 7.6 g/dL (6.3-8.2)
[2019-10-19 07:49] LABS: Troponin I < 0.012 ng/mL (0.01-0.034)
[2019-10-19 07:53] LABS: CKMB % Relative Index 1.6 % (1.5-5.0); Creatine Kinase MB 2.02 ng/mL (<2.37)
[2019-10-19] MEDS: APIXABAN 5 MG TABLET PO ×2 (09:53→20:56)
[2019-10-19 10:15] LABS: Troponin I < 0.012 ng/mL (0.01-0.034)
--- NOTE | 2019-10-19 11:32 | PC.NURSE ---
PT ADMITTED TO ROOM 224- TELE SHOWS SINUS BRADYCARDIA RATE 45, - PT STATES HIS EPIGASTRIC DISCOMFORT IS 2/10 FOLLOWING TREATMENT IN ED, SALINE LOCKED AWAITING ADMISSION ORDERS - HEART HEALTHY DIET ORDERED. PT STATES HE HAS NOT TAKEN ANY CARDIAC MEDS YET THIS AM OTHER THAN BABY ASA X 4 AND HIS AM DOSE OF ELIQUIS IN ED- ORIENTED TO ROOM AND CALL LIGHT WELL TV REMOTE/BED CONTROLS
[2019-10-19] MEDS: AMLODIPINE 5 MG TABLET PO (14:53)
[2019-10-19] MEDS: ROSUVASTATIN 10 MG TABLET 5 MG PO (16:58)
[2019-10-19] MEDS: TELMISARTAN 40 MG TABLET PO (16:59)
[2019-10-19 17:08] LABS: Creatine Kinase 92 U/L (55-170)
[2019-10-19 17:21] LABS: Troponin I < 0.012 ng/mL (0.01-0.034)
--- NOTE | 2019-10-19 17:37 | PM.HP.1 ---
History of Present Illness History of Present Illness Date Patient Seen: 10/19/19 Chief complaint: epigastric pain 30+mins Narrative: Brayden Jackson is a 69-year-old male with a past medical history significant for hypertension, hyperlipidemia, paroxysmal atrial fibrillation status post recent cardioversion and remains in sinus rhythm, GERD, and osteoarthritis who presented to the ED for abrupt onset burning epigastric abdominal pain which awoke him from sleep. The patient reports that approximately 0630 he awoke from sleeping on his side with burning epigastric pain. He went to the bathroom and took Pepto-Bismol which did not give him much relief right away. The pain gradually worsened over 10 minutes and he started to develop diaphoresis prompting him to go to the ED to be evaluated. He describes the pain as burning, sharp, and tearing in quality. He reports the pain radiates straight through to his back bone. He had no other associated symptoms and denies nausea, vomiting, shortness of breath, radiation to neck, jaw, shoulders or arms. He denies any provocation and reports that it awoke him from sleep. His epigastric burning pain was resolving by the time he arrived at the emergency department. He received aspirin 324 mg x 1 and a GI cocktail in the ED and his epigastric pain has now completely resolved upon my interview. He reports he had this previously in July at which time he did not seek evaluation and describes the pain as epigastric in location, sharp in quality and radiated straight through to his back and up to his bilateral shoulders. He had a nuclear medicine stress test performed by Dr. Roberts of [facility] in December 2017 for preoperative clearance for right hip replacement and was normal and an echocardiogram in October 2018 which was normal with preserved EF per on-call manifest clerk at [facility] cardiology. In the ED: The patient's vital signs were stable. EKG demonstrated sinus bradycardia without acute ischemic changes such as ST elevation or depression. Troponin x2 negative. Patient was admitted observation and chest pain rule out. Patient History Medical History (Updated 10/19/19 @ 17:39 by Katiana Valle DO) Basal cell carcinoma (Acute) Blue nevus of buttock (Acute) Deep vein thrombosis (DVT) of distal vein of right lower extremity (Acute ~2016) Edema (Acute) GERD (gastroesophageal reflux disease) (Acute) Hepatitis B (Acute ~1981) History of cardioversion (Acute) HTN (hypertension) (Acute) Hyperlipidemia (Acute) Low back pain (Acute) Osteoarthritis (Acute) Paroxysmal A-fib (Acute) Precancerous lesion (Acute) Ruptured Bakers cyst (Acute) Scab (Acute) Spermatocele (Acute) Stroke (Acute) Surgical History (Updated 10/19/19 @ 17:39 by Katiana Valle DO) History of esophagogastroduodenoscopy (EGD) (Acute) History of surgical removal of pilonidal cyst (Acute) History of tonsillectomy (Acute) Hx of colonoscopy with polypectomy (Acute ~2017) Family & Social History Family History (Updated 10/19/19 @ 17:42 by Katiana Valle DO) Father CVA (cerebral vascular accident) Hypertension Mother Dementia Brother Healthy adult Sister Healthy adult Social History: household members spouse,family Safety & Behavioral: Feels Safe in Current Yes Environment Been Physically Hurt or No Threatened By a Person Suicidal Ideation Description None Suicide Plan Description No Plan Tobacco & Substance use: Smoking Status Never smoker alcohol intake current alcohol intake frequency 5-6 drinks per week Substance Use Type does not use The patient has been for 34 years. 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 He has 3 children, 2 daughters and 1 son, who are all healthy. Meds Home Medications and Allergies Home Medications Medication Instructions Recorded Confirmed Type magnesium oxide 500 mg PO BEDTIME #0 03/08/17 10/19/19 History multivitamin [Multiple Vitamins] 1 tab PO QAM #0 03/08/17 10/19/19 History omeprazole 20 mg PO QPM #0 03/08/17 10/19/19 History telmisartan [Micardis] 40 mg PO QPM #0 03/08/17 10/19/19 History Hyaluronic Acid (chond-collgn) 3 cap PO QDAY #0 06/03/17 10/19/19 History Eliquis 5 mg PO BID 01/17/18 10/19/19 History amlodipine 5 mg PO QAM 01/17/18 10/19/19 History rosuvastatin 5 mg PO QPM 01/17/18 10/19/19 History cholecalciferol (vitamin D3) 125 mcg PO QAM 10/19/19 10/19/19 History [Vitamin D3] ezetimibe 10 mg PO QAM 10/19/19 10/19/19 History sotalol 120 mg PO BID 10/19/19 10/19/19 History Allergies Allergy/AdvReac Type Severity Reaction Status Date / Time [id number]-[id number]-[id number] Reductase AdvReac Severe Muscle Verified 01/17/18 07:44 Inhibitor cramps, myalgia Review of Systems Review of Systems Narrative: A 10 system comprehensive review of systems was conducted with the patient and found to be negative except as above in the History of Present Illness. Exam Vital Signs (past 8 hours): - 10/19/19 10:18 10/19/19 10:59 10/19/19 16:00 Temperature 97.2 F L 97.6 F Pulse Rate 50 L 44 L 49 L Respiratory Rate 17 16 18 Blood Pressure 181/106 H 169/78 H 145/74 H Pulse Oximetry 97 96 96 Oxygen Delivery Method Room Air Oxygen Flow Rate 0 Narrative Exam Narrative: General: Older gentleman sitting in bed and in no acute distress, appears stated age, well-developed, well-nourished, appropriately interactive. HEENT: Normocephalic, atraumatic. External ears without defect. Pupils equal, round, and reactive to light. Anicteric sclerae, moist conjunctivae, and no lid lag. Oropharynx free of erythema and cobble stoning with moist mucosa. Neck: Supple with full range of motion. No jugular venous distension. No bruits. No lymphadenopathy or thyromegaly. Cardiovascular: Regular rate and rhythm without murmurs, rubs, or gallops appreciated Pulmonary: Clear to auscultation bilaterally without crackles, wheezes, or rhonchi. Normal respiratory effort with no use of accessory muscles. Abdomen: Soft, obese, nontender, nondistended. No hepatosplenomegaly or masses appreciated. Extremities: No clubbing, cyanosis, or edema. Skin: Normal temperature, turgor, and texture; no rash, ulcers, or subcutaneous nodules appreciated. Neurological: Cranial nerves grossly intact. Slight stutter. Psychiatric: Normal mood and affect. Alert and oriented to person, place, and time. Objective Labs Result Diagrams: 10/20/19 04:55 10/20/19 04:55 Labs: Laboratory Results - last 24 hr 10/19/19 10/19/19 10/19/19 07:17 07:17 09:15 WBC 5.3 RBC 4.78 Hgb 15.0 Hct 43.1 MCV 90.0 MCH 31.3 MCHC 34.8 RDW 14.2 Plt Count 166 Neut % (Auto) 52.5 Lymph % (Auto) 30.1 [place] % (Auto) 12.1 Eos % (Auto) 3.4 Baso % (Auto) 1.9 Neut # (Auto) 2800 Lymph # (Auto) 1600 [place] # (Auto) 600 Eos # (Auto) 200 Baso # (Auto) 100 Sodium 138 Potassium 4.2 Chloride 106 Carbon Dioxide 23 BUN 24 H Creatinine 0.90 Estimated GFR > 60.0 BUN/Creatinine Ratio 26.7 H Glucose 118 H Calcium 9.3 Total Bilirubin 0.5 AST 32 ALT 31 Alkaline Phosphatase 104 Total Creatine Kinase 125 CK-MB (CK-2) 2.02 CK-MB (CK-2) Rel Index 1.6 Troponin I < 0.012 < 0.012 Total Protein 7.6 Albumin 4.3 Globulin 3.3 Albumin/Globulin Ratio 1.3 Lipase 47 10/19/19 16:51 WBC RBC Hgb Hct MCV MCH MCHC RDW Plt Count Neut % (Auto) Lymph % (Auto) [place] % (Auto) Eos % (Auto) Baso % (Auto) Neut # (Auto) Lymph # (Auto) [place] # (Auto) Eos # (Auto) Baso # (Auto) Sodium Potassium Chloride Carbon Dioxide BUN Creatinine Estimated GFR BUN/Creatinine Ratio Glucose Calcium Total Bilirubin AST ALT Alkaline Phosphatase Total Creatine Kinase 92 CK-MB (CK-2) TNP CK-MB (CK-2) Rel Index TNP Troponin I < 0.012 Total Protein Albumin Globulin Albumin/Globulin Ratio Lipase Assessment & Plan Assessment & Plan narrative: Brayden Jackson is a 69-year-old male with a past medical history significant for hypertension, hyperlipidemia, paroxysmal atrial fibrillation status post recent cardioversion and remains in sinus rhythm, GERD, and osteoarthritis who presented to the ED for abrupt onset burning epigastric abdominal pain which awoke him from sleep. 1. Acute epigastric abdominal pain possibly atypical chest pain, present on admission. Resolved. -Patient presented after being abruptly awoken with epigastric burning, sharp, tearing pain radiating straight to back with associated diaphoresis. Patient previously had nuclear medicine perfusion imaging in December 2017 and echocardiogram in October 2018 which were normal per [facility] cardiology. -Rule out ACS and aortic aneurysm. Differential diagnosis includes: GERD versus biliary colic versus cardiac arrhythmia such as atrial fibrillation versus musculoskeletal. -Cardiac risk factors include: Hypertension, hyperlipidemia, and significant family history of father who in his 60s of CVA. -EKG demonstrated sinus bradycardia without acute ischemic changes such as ST elevation or depression. Continue to monitor closely on telemetry. -Continue to monitor serial troponin every 6 hours x3. Troponin negative x2. -Risk stratified with fasting lipid panel and hemoglobin A1c, pending. -Received aspirin 324 mg x 1 in ED. Continue aspirin 81 mg daily and may discontinue if ACS ruled out. -Ordered echocardiogram, pending. -Ordered CT angiogram chest, abdomen and pelvis to rule out aortic aneurysm. -Ordered exercise and nuclear medicine stress testing, pending. NPO midnight. 2. GERD, chronic, present on admission. Stable. -Continue omeprazole 20 mg daily in the evening. 3. Previous history of paroxysmal atrial fibrillation, status post cardioversion in sinus rhythm, present on admission. Stable. -Patient had elective cardioversion at the end of July or early August and remains in sinus rhythm. -Continue Eliquis 5 mg twice daily and sotalol 120 mg daily. 4. Hypertension, chronic, present on admission. Stable. -Continue amlodipine 5 mg daily and telmisartan 40 mg daily in the evening. 5. Hyperlipidemia, chronic, present on admission. Stable. -Ordered fasting lipid panel, pending. -Continue rosuvastatin 5 mg daily in the evening and ezetimibe 10 mg daily in the morning. Code status: Full code. Surrogate decision maker is patient's spouse. DVT prophylaxis: Kelli Saldaña Patient is admitted under observation status with expected length of stay less than 2 midnights due to severity of presenting symptoms, risk of adverse event, and complexity of treatment plan. Quality VTE Deep Vein Thrombosis/Pulmonary Embolism Present on Admission: No
[2019-10-19 17:59] LABS: TSH w/ Reflex to FT4 2.61 uIU/mL (0.47-4.68)
[2019-10-19] MEDS: SOTALOL 80 MG TABLET 120 MG PO (20:57)
--- NOTE | 2019-10-19 23:23 | PC.NURSE ---
Patient is alert and oriented. Breath sounds CTA with RA sat of 95%. HRR but bradycardic with rate in 50's; denies any chest pain. Denies nausea. BT present and abdomen is soft. Voiding with denial of dysuria, frequency or urgency. Is independent with mobility. Denies any pain. Fall risk score is low but reminded to call for assistance if feeling any pain, dizziness or lightheadedness when getting out of bed and patient verbalizes understanding. Not wearing SCD's as is independent with mobility and declines need. Will be NPO after 0000 for stress test in a.m.; patient is aware.
[2019-10-19 23:35] LABS: Creatine Kinase 88 U/L (55-170)
[2019-10-19 23:48] LABS: Troponin I < 0.012 ng/mL (0.01-0.034)
[2019-10-20 05:07] LABS: Add Manual Diff / Slide Review NO; Basophils Absolute Auto 0 /uL (0-100); Basophils Percent Auto 0.5 % (0-2); Eosinophils Absolute Auto 200 /uL (0-450); Eosinophils Percent Auto 3.2 % (2-4); Hematocrit 41.5 % (41-53); Hemoglobin 14.3 g/dL (13.5-17.5); Lymphocytes Absolute Auto 1700 /uL (1100-4500); Lymphocytes Percent Auto 31.8 % (25-40); Mean Corpuscular HGB Conc 34.3 % (30-36); Mean Corpuscular Hemoglobin 30.9 PG (26-34); Mean Corpuscular Volume 90.1 fL (80-100); Monocytes Absolute Auto 600 /uL (0-900); Monocytes Percent Auto 12.2 % (3-14); Neutrophils Absolute Auto 2800 /uL (1500-7000); Neutrophils Percent Auto 52.3 % (50-75); Platelet Count 143 X10^3/uL (150-400); Red Blood Cell Count 4.61 X10^6/uL (4.5-5.9); Red Cell Distribution Width 13.8 % (11.6-14.8); White Blood Cell Count 5.3 X10^3/uL (4.5-11.0)
[2019-10-20 05:15] LABS: Alanine Aminotransferase 28 IU/L (<50); Albumin 3.9 g/dL (3.5-5.0); Albumin Globulin Ratio 1.3 (1.0-2.8); Alkaline Phosphatase 64 U/L (38-126); Aspartate Aminotransferase 27 IU/L (17-59); BUN Creatinine Ratio 19.2 (6-22); Bilirubin Total 0.6 mg/dL (0.2-1.3); Blood Urea Nitrogen 19 mg/dL (9-20); Calcium 9.1 mg/dL (8.4-10.2); Carbon Dioxide 26 mmol/L (22-32); Chloride 105 mmol/L (98-107); Cholesterol 136 mg/dL (140-199); Estimated Glomerular Filt Rate > 60.0 mL/min (>60); Globulin 2.9 g/dL (1.7-4.1); Glucose 110 mg/dL (80-110); HDL Cholesterol 37 mg/dL (40-60); HEMOLYSIS < 15 (0-50); LDL Cholesterol Calculated 71 mg/dL (<100); Potassium 4.5 mmol/L (3.4-5.1); Sodium 139 mmol/L (137-145); Total Protein 6.8 g/dL (6.3-8.2); Triglycerides 138 mg/dL (35-150)
[2019-10-20 05:19] LABS: Hemoglobin A1C% w Est Avg Glu 6.3 % (4.0-6.0)
[2019-10-20 05:20] VITALS: BP 134/74; PULSE 46; RESP 18; TEMP 36.8; O2SAT 95
--- NOTE | 2019-10-20 07:28 | DI.CT.S_ITS ---
PROCEDURE: CT ANGIO CHEST ABDOMEN PELVIS INDICATIONS: epigastric tearing pain rad to back TECHNIQUE: Precontrast 5 mm thick sections acquired from the lung apices to the iliac crests. After the administration of intravenous contrast, 2.5 mm thick sections again acquired from the lung apices to the iliac crests. Maximum intensity projection (MIP) oblique sagittal and coronal reformats were then acquired. For radiation dose reduction, the following was used: automated exposure control. COMPARISON: [facility], CT, CHEST/ABD/PEL WITH CONTRAST, 03/22/2017, 7:48. FINDINGS: Image quality: Portions of the lower pelvis are suboptimally evaluated secondary to metallic streak artifact from hip arthroplasty. AORTA: Aorta demonstrates no aneurysmal dilation, hemodynamically significant stenosis or dissection. Scattered areas of mild calcification are noted particularly within the abdominal aorta consistent with atherosclerotic disease. CHEST: Lungs and pleura: No acute airspace opacities. No pleural effusions or pneumothorax. Central and peripheral airways are patent and normal in caliber. Mediastinum: Heart size is normal. No pericardial effusion. No mediastinal or hilar adenopathy by size criteria. Central pulmonary arteries are normal in size. Esophagus is normal in caliber. No hiatal hernias. Bones and chest wall: No axillary adenopathy by size criteria. Thyroid gland is unremarkable. No suspicious bony lesions. No vertebral body compression fractures. ABDOMEN: Vasculature: Celiac trunk and mesenteric arteries are patent. Renal arteries are also patent. Solid organs: Liver mildly enlarged with steatosis. Gallbladder demonstrates a dependent calcification without wall thickening. Biliary system is non dilated. Pancreas enhances normally. Spleen is normal in size and enhancement. No adrenal nodules. Both kidneys are normal in size and enhancement, without hydronephrosis. Peritoneum and bowel: No free fluid or air. Bowel loops are normal in caliber and wall thickness. Nodes and vessels: No retroperitoneal or mesenteric adenopathy by size criteria. Inferior vena cava is normal in morphology. Miscellaneous: No ventral hernias. PELVIS: Genitourinary: Bladder wall thickness is normal. Miscellaneous: Fat-containing inguinal hernias are present. No ventral hernias. Bones: No suspicious bony lesions. No vertebral body compression fractures. IMPRESSION: 1. No evidence of aortic dissection. Scattered atherosclerotic disease is noted. 2. Cholelithiasis. Dictated by: Julee Holguin M.D. on 10/20/2019 at 8:37 Approved by: Julee Holguin M.D. on 10/20/2019 at 9:36
[2019-10-20 07:30] VITALS: O2SAT 93
--- NOTE | 2019-10-20 07:55 | DI.NM.S_ITS ---
PROCEDURE: NM ELIEL PERF SPECT SINGLE STUDY Exercise myocardial perfusion SPECT with gated imaging and ejection fraction RADIOPHARMACEUTICAL: 23.8 mCi Tc-99m sestamibi IV at peak exercise. INDICATIONS: atypical chest pain TECHNIQUE: Radiopharmaceutical was injected at peak stress test. SPECT images were obtained, with perfusion images in short axis, horizontal long axis, and vertical long axis views. Gated images were reviewed using [employer] software. COMPARISON: None. CARDIAC STRESS: A standard Casey treadmill exercise tolerance test was performed by the patient under the supervision of an attending staff. The patient exercised for 7 minutes and 3 seconds; functional aerobic impairment (FLORENT[place]) is 0%. Hemodynamic data: There is normal blood pressure and heart response to exercise. Patient achieved 86% of maximum predicted heart rate. Symptoms: Patient denied anginal chest pain during exercise. EKG: No diagnostic changes of ischemia; frequent PVCs during exercise that resolve quickly during recovery. FINDINGS: Raw data: There is good labeling of myocardium by radiotracer. No significant motion artifacts. Vwbm-mm-bcmvg ratio is 0.3 (normal is less than 0.38 for sestamibi tracer, and less than 0.50 for thallium tracer). Left ventricular function: Gated images demonstrate normal left ventricle wall thickening. No segmental wall motion abnormalities. Left ventricle end diastolic volume is 118 mL. Left ventricle stress ejection fraction is 67%; normal values are above 45%. Myocardial perfusion: There is a mild perfusion defect in the basal to mid lateral wall, the entire inferior wall, and the apex that resolves with prone imaging suggesting artifact than true ischemia or infarction. IMPRESSION: Low risk, probably normal treadmill stress only nuclear study. 1) No perfusion evidence of ischemia or infarction. There is a mild perfusion defect in the basal to mid lateral wall, the entire inferior wall, and the apex that resolves with prone imaging suggesting artifact than true ischemia or infarction. 2) Normal left ventricular size, wall motion, and systolic function (EF post stress 67%). 3) No ECG evidence of ischemia. Frequent PVCs with exercise that resolve quickly during recovery. 4) No angina during the study. 5) No prior nuclear stress test available for comparison. Dictated by: Hao Epperson MD on 10/20/2019 at 13:04 Approved by: Hao Epperson MD on 10/20/2019 at 13:08
[2019-10-20 08:02] VITALS: BP 144/86; PULSE 52; RESP 16; TEMP 36.5; O2SAT 92
--- NOTE | 2019-10-20 08:06 | PC.NURSE ---
Addendum entered by Ryann Moore R.N. 10/20/19 15:54: Ambulated and accompanied out to private vehicle by this screenplay writer. Addendum entered by Ryann Moore R.N. 10/20/19 15:32: Discharge home: IV dc'd intact. Tele dc'd. Patient was seen by software database architect prior to discharge, and Dr Valle also did teaching re: DASH diet. Education handouts given on diet and biliary colic. Patient has already scheduled an appt to follow up with his academic vice president and his PCP. Verbalized understanding of all discharge instructions and stated no further questions. All belongings collected and ready to sent with patient when his ride gets here. He has called his and will press his call light when she's here for him. Addendum entered by Ryann Moore R.N. 10/20/19 11:07: Off floor for stress test at this time, ICU notified of the same. Addendum entered by Ryann Moore R.N. 10/20/19 09:13: Mr Jackson is alert and oriented X3. Indep in room, steady on feet. Denied chest pain/pressure/palpitations/shortness of breath/ dizziness/lightheadedness. Only complaint is he would like some coffee, but he understands he can't until after his stress test. He did have a snack (juice/milk/cereal) but is NPO again now. HRR, sinus bradycardia per tele report. Lungs CTA, room air. Able to make needs known and calls appropriately. Light and belongings within reach. Original Note: Shift summary: Off floor at this time for CT scan. This screenplay writer spoke with DI nurse Samano who said patient can have a small snack now (0 caffeine), and then should be NPO until stress test (scheduled for approx 1100). Beta zia also held r/t upcoming treadmill.
[2019-10-20] MEDS: SODIUM CHLORIDE 0.9% FLUSH 10 ML IV (09:04)
[2019-10-20] MEDS: EZETIMIBE 10 MG TABLET PO (09:05)
[2019-10-20] MEDS: APIXABAN 5 MG TABLET PO (09:06)
[2019-10-20] MEDS: ASPIRIN EC 81 MG TABLET PO (09:06)
[2019-10-20] MEDS: AMLODIPINE 5 MG TABLET PO (09:06)
--- NOTE | 2019-10-20 10:05 | P.DS_ITS ---
History of Present Illness History of Present Illness Date Patient Seen: 10/19/19 Chief complaint: epigastric pain 30+mins Narrative: Written by myself Dr. Valle: Brayden Jackson is a 69-year-old male with a past medical history significant for hypertension, hyperlipidemia, paroxysmal atrial fibrillation status post recent cardioversion and remains in sinus rhythm, GERD, and osteoarthritis who presented to the ED for abrupt onset burning epigastric abdominal pain which awoke him from sleep. The patient reports that approximately 0630 he awoke from sleeping on his side with burning epigastric pain. He went to the bathroom and took Pepto-Bismol which did not give him much relief right away. The pain gradually worsened over 10 minutes and he started to develop diaphoresis prompting him to go to the ED to be evaluated. He describes the pain as burning, sharp, and tearing in quality. He reports the pain radiates straight through to his back bone. He had no other associated symptoms and denies nausea, vomiting, shortness of breath, radiation to neck, jaw, shoulders or arms. He denies any provocation and reports that it awoke him from sleep. His epigastric burning pain was resolving by the time he arrived at the emergency department. He received aspirin 324 mg x 1 and a GI cocktail in the ED and his epigastric pain has now completely resolved upon my interview. He reports he had this previously in July at which time he did not seek evaluation and describes the pain as epigastric in location, sharp in quality and radiated straight through to his back and up to his bilateral shoulders. He had a nuclear medicine stress test performed by Dr. Roberts of [facility] in December 2017 for preoperative clearance for right hip replacement and was normal and an echocardiogram in October 2018 which was normal with preserved EF per on-call physical biochemist at [facility] cardiology. In the ED: The patient's vital signs were stable. EKG demonstrated sinus bradycardia without acute ischemic changes such as ST elevation or depression. Troponin x2 negative. Patient was admitted observation and chest pain rule out. Discharge Providers Provider Date of admission: 10/19/19 09:29 Discharge Date: 10/20/19 Primary care physician: Bibiana Nogueira DO Discharge provider: Katiana Valle DO Summary Hospital Course Discharge Diagnosis: 1. Acute epigastric abdominal pain, likely biliary colic, present on admission. Resolved. 2. GERD, chronic, present on admission. Stable. 3. Previous history of paroxysmal atrial fibrillation, status post cardioversion in sinus rhythm, present on admission. Stable. 4. Hypertension, chronic, present on admission. Stable. 5. Hyperlipidemia, chronic, present on admission. Stable. 6. Prediabetes, chronic, present on admission. Stable. Hospital Course: Brayden Jackson is a 69-year-old male with a past medical history significant for hypertension, hyperlipidemia, paroxysmal atrial fibrillation status post recent cardioversion and remains in sinus rhythm, GERD, and osteoarthritis who presented to the ED for abrupt onset burning epigastric abdominal pain which awoke him from sleep. 1. Acute epigastric abdominal pain, likely biliary colic, present on admission. Resolved. -Patient presented after being abruptly awoken with epigastric burning, sharp, tearing pain radiating straight to back with associated diaphoresis. Patient previously had nuclear medicine perfusion imaging in December 2017 and echocardiogram in October 2018 which were normal per [facility] cardiology. -Likely secondary to biliary colic as patient describes epigastric burning pain after eating that gradually builds and then subsides and has had 2 episodes in the last 24 hours 1 previous episode in July that he was not evaluated for. Ruled out ACS and aortic aneurysm and dissection. -Cardiac risk factors include: Hypertension, hyperlipidemia, and significant family history of father who in his 60s of CVA. -EKG demonstrated sinus bradycardia without acute ischemic changes such as ST elevation or depression. Continued to monitor closely on telemetry and patient remained in sinus bradycardia with heart rate as low as 41. -Serial troponin negative x 3. -Risk stratified with fasting lipid panel which demonstrated excellent lipid control with: Total cholesterol 136, triglycerides 138, LDL 71, HDL 37 and hemoglobin A1c which was 6.3% indicative of prediabetes see management below. -Received aspirin 324 mg x 1 in ED. Continuedaspirin 81 mg daily until ACS ruled out. -CT angiogram chest, abdomen and pelvis ruled out aortic aneurysm and dissection. Cholelithiasis present. -Nuclear medicine stress testing demonstrated risk study with no perfusion evidence of ischemia or infarction, normal LV size motion and systolic function with EF 67%, no EKG evidence of ischemia with frequent PVCs during exercise that resolved during recovery and no angina. 2. GERD, chronic, present on admission. Stable. -Continued omeprazole 20 mg daily in the evening. 3. Previous history of paroxysmal atrial fibrillation, status post cardioversion in sinus rhythm, present on admission. Stable. -Patient had elective cardioversion at the end of July or early August and remains in sinus rhythm. -Continued Eliquis 5 mg twice daily and sotalol 120 mg daily. 4. Hypertension, chronic, present on admission. Stable. -Continued amlodipine 5 mg daily and telmisartan 40 mg daily in the evening. 5. Hyperlipidemia, chronic, present on admission. Stable. -Fasting lipid panel demonstrated excellent lipid control with: Total cholesterol 136, triglycerides 138, LDL 71, HDL 37. -Continued rosuvastatin 5 mg daily in the evening and ezetimibe 10 mg daily in the morning. 6. Prediabetes, chronic, present on admission. Stable. -Hemoglobin A1c 6.3% indicative of prediabetes. -Counseled the patient extensively on lifestyle modification including: Diet and exercise. -Consulted dietitian we appreciate her time and recommendations. Exam Vital Signs (past 8 hours): - 10/20/19 05:20 10/20/19 07:30 10/20/19 08:02 Temperature 98.2 F 97.7 F Pulse Rate 46 L 52 L Respiratory Rate 18 16 Blood Pressure 134/74 144/86 H Pulse Oximetry 95 93 92 Oxygen Delivery Method Room Air Oxygen Flow Rate 0 Narrative Exam Narrative: General: Older gentleman sitting in bedside chair and in no acute distress, appears stated age, well-developed, well-nourished, appropriately interactive. HEENT: Normocephalic, atraumatic. External ears without defect. Pupils equal, round, and reactive to light. Anicteric sclerae, moist conjunctivae, and no lid lag. Oropharynx free of erythema and cobble stoning with moist mucosa. Neck: Supple with full range of motion. No jugular venous distension. No bruits. No lymphadenopathy or thyromegaly. Cardiovascular: Regular rhythm and rate without murmurs, rubs, or gallops appreciated. Pulmonary: Clear to auscultation bilaterally without crackles, wheezes, or rhonchi. Normal respiratory effort with no use of accessory muscles. Abdomen: Soft, obese, nontender, nondistended. No Ribeiro sign. No hepatosplenomegaly or masses appreciated. Extremities: No clubbing, cyanosis, or edema. Skin: Normal temperature, turgor, and texture; no rash, ulcers, or subcutaneous nodules appreciated. Neurological: Cranial nerves grossly intact. Slight stutter. Psychiatric: Normal mood and affect. Alert and oriented to person, place, and time. Objective Labs Result Diagrams: 10/20/19 04:55 10/20/19 04:55 Labs: Laboratory Results - last 24 hr 10/19/19 10/19/19 10/19/19 09:15 16:51 16:51 WBC RBC Hgb Hct MCV MCH MCHC RDW Plt Count Neut % (Auto) Lymph % (Auto) [place] % (Auto) Eos % (Auto) Baso % (Auto) Neut # (Auto) Lymph # (Auto) [place] # (Auto) Eos # (Auto) Baso # (Auto) Sodium Potassium Chloride Carbon Dioxide BUN Creatinine Estimated GFR BUN/Creatinine Ratio Glucose Hemoglobin A1c Calcium Magnesium Total Bilirubin AST ALT Alkaline Phosphatase Total Creatine Kinase 92 CK-MB (CK-2) TNP CK-MB (CK-2) Rel Index TNP Troponin I < 0.012 < 0.012 Total Protein Albumin Globulin Albumin/Globulin Ratio Triglycerides Cholesterol LDL Cholesterol, Calc HDL Cholesterol TSH 2.61 10/19/19 10/20/19 10/20/19 23:00 04:55 04:55 WBC 5.3 RBC 4.61 Hgb 14.3 Hct 41.5 MCV 90.1 MCH 30.9 MCHC 34.3 RDW 13.8 Plt Count 143 L Neut % (Auto) 52.3 Lymph % (Auto) 31.8 [place] % (Auto) 12.2 Eos % (Auto) 3.2 Baso % (Auto) 0.5 Neut # (Auto) 2800 Lymph # (Auto) 1700 [place] # (Auto) 600 Eos # (Auto) 200 Baso # (Auto) 0 Sodium 139 Potassium 4.5 Chloride 105 Carbon Dioxide 26 BUN 19 Creatinine 0.99 Estimated GFR > 60.0 BUN/Creatinine Ratio 19.2 Glucose 110 Hemoglobin A1c Calcium 9.1 Magnesium Total Bilirubin 0.6 AST 27 ALT 28 Alkaline Phosphatase 64 Total Creatine Kinase 88 CK-MB (CK-2) TNP CK-MB (CK-2) Rel Index TNP Troponin I < 0.012 Total Protein 6.8 Albumin 3.9 Globulin 2.9 Albumin/Globulin Ratio 1.3 Triglycerides 138 Cholesterol 136 L LDL Cholesterol, Calc 71 HDL Cholesterol 37 L TSH 10/20/19 10/20/19 04:55 04:55 WBC RBC Hgb Hct MCV MCH MCHC RDW Plt Count Neut % (Auto) Lymph % (Auto) [place] % (Auto) Eos % (Auto) Baso % (Auto) Neut # (Auto) Lymph # (Auto) [place] # (Auto) Eos # (Auto) Baso # (Auto) Sodium Potassium Chloride Carbon Dioxide BUN Creatinine Estimated GFR BUN/Creatinine Ratio Glucose Hemoglobin A1c 6.3 H Calcium Magnesium 2.0 Total Bilirubin AST ALT Alkaline Phosphatase Total Creatine Kinase CK-MB (CK-2) CK-MB (CK-2) Rel Index Troponin I Total Protein Albumin Globulin Albumin/Globulin Ratio Triglycerides Cholesterol LDL Cholesterol, Calc HDL Cholesterol TSH Discharge Plan Discharge Plan Patient Disposition: Home Discharge comment: You are being discharged home. There is no evidence of heart attack or impending heart attack and your EKG, cardiac enzymes, and stress test were all normal. You have good exercise capacity. Your epigastric burning sensation is likely secondary to biliary colic or bile acid reflux. If this con tinues to happen frequently you may consider elective cholecystectomy and would need referred to a general surgeon. Please follow-up with your primary care physician, Dr. Nogueira, in the next 1-2 weeks regarding your hospitalization. Please follow-up with your physical biochemist, Dr. Roberts, as previously scheduled. Discharge orders & Medications Prescriptions: Continued telmisartan [Micardis] 40 MG tablet 40 mg PO QPM Qty: 0 RF: 0 magnesium oxide 500 MG tablet 500 mg PO BEDTIME Qty: 0 RF: 0 omeprazole 20 MG capsule,delayed release(DR/EC) 20 mg PO QPM Qty: 0 RF: 0 multivitamin [Multiple Vitamins] 1 EACH tablet 1 tab PO QAM Qty: 0 RF: 0 Hyaluronic Acid (chond-collgn) 1 EACH capsule 3 cap PO QDAY Qty: 0 RF: 0 sotalol 80 mg tablet 120 mg PO BID RF: 0 ezetimibe 10 mg tablet 10 mg PO QAM RF: 0 cholecalciferol (vitamin D3) [Vitamin D3] 125 mcg (5,000 unit) Tablet 125 mcg PO QAM RF: 0 amlodipine 5 mg Tablet 5 mg PO QAM RF: 0 rosuvastatin 5 mg Tablet 5 mg PO QPM RF: 0 Eliquis 5 mg Tablet 5 mg PO BID RF: 0 Follow up/Referrals: Bibiana Nogueira DO [Primary Care Provider] - 2 Weeks Diet/Activity/Treatments Diet: Low-fat, Low-sodium and Low-cholesterol Activity: Activity as tolerated Visit Report/Discharge Packet Instructions: The Mediterranean Diet and Good Health, The DASH Diet, DI for Biliary Colic Discharge Data Primary Care Provider: Bibiana Nogueira Attending Provider: Katiana Valle Admit Date/Time: 10/19/19 09:29 Quality VTE Deep Vein Thrombosis/Pulmonary Embolism Present on Admission: No
[2019-10-20 12:53] VITALS: BP 140/93; PULSE 60; RESP 18; TEMP 36.6; O2SAT 97
--- NOTE | 2019-10-20 13:55 | DIET.PN ---
Dietary Progress Note Assessment: Mr. Jackson is a 69-year-old male with a past medical history of hypertension, hyperlipidemia, atrial fibrillation status post recent cardioversion, GERD, and osteoarthritis who presented to the ED for epigastric abdominal pain which awoke him from sleep. He is newly diagnosed pre-diabetes. Pt reports dietary history to include vegetable omelets, chicken/egg salad sandwiches, soups, cup of noodles. He walks just over a mile approx 4x/wk. HT: 180.34cm WT: 105.1kg BMI: 32.3 Labs: A1c: 6.3 MNA: 14 Jah: 22 Nutrition Diagnosis: Altered nutrition related laboratory values r/t endocrine dysfunction aeb elevated glucose, HgbA1c, and pt report diet high in carbohydrates. Interventions: 1. Discussed pathophysiology of diabetes. Reviewed A1c and its correlation to blood glucose numbers. Discussed recommended BG ranges. 2. Recommended purchasing glucometer for occasional monitoring. 3. Discussed impact of nutrition/diet on blood sugar control.? Discussed fed versus non-fed state.?? 4. Discussed the effect of carbohydrates/protein/fat on blood sugar control.? Stressed importance of consistent carbohydrate intake at each meal and provided instructions for recommended servings/portions of carbohydrates/protein per meal. Provided pt with educational material. 5. Reviewed carbohydrate counting and measuring carbohydrate content via serving sizes and reading nutrition labels.? Provided handouts.?? 6. Discussed healthy weight loss through diet and exercise to increase lean muscle mass.? Pt agreeable to walking daily. Diet Order: EER: 2100 magalie (20cal/kg obese); 125 (1.2) Monitoring/Evaluations: weight, PO's, BG
== END 2019-10-20 15:54 | disposition home or self-care (01) ==
LOC: ED 09:07 → AC 09:31
PROVIDERS: Admitting Provider Internal Medicine; Emergency Provider Emergency Medicine; PCP Family Medicine; Referring Provider Emergency Medicine; Visit Provider Internal Medicine
DX: R10.13 Epigastric pain (principal); Z79.01 Long term (current) use of anticoagulants; I10 Essential (primary) hypertension; E78.5 Hyperlipidemia, unspecified; K21.9 Gastro-esophageal reflux disease without esophagitis; R73.03 Prediabetes; R07.89 Other chest pain
CPT/HCPCS: 36415; 71045; 71275; 74174; 78451; 80053; 80061; 82550; 82553; 83036; 83690; 83735; 84443; 84484; 85025; 93005; 93010; 93017; 96361; 96374; 99285; G0378; A9502; C9113; Q9967

== ENCOUNTER → 2022-09-21 11:06 | Outpatient (CLI) | payer MEDICARE, OTHER, SELFPAY ==
[2019-10-19 10:10] VITALS: BMI 32.6
[2022-09-21 14:48] LABS: Blood Urea Nitrogen 25 mg/dL (9-20); Calcium 9.3 mg/dL (8.4-10.2); Carbon Dioxide 28 mmol/L (22-32); Chloride 104 mmol/L (98-107); Estimated Glomerular Filt Rate > 60 mL/min (>60); Glucose 87 mg/dL (80-110); HEMOLYSIS < 15 (0-50); Potassium 4.6 mmol/L (3.4-5.1); Sodium 139 mmol/L (137-145)
== END ==
PROVIDERS: PCP Family Medicine; Referring Provider Nurse Practitioner Acute Care; Visit Provider Nurse Practitioner Acute Care
DX: I48.0 Paroxysmal atrial fibrillation (principal)
CPT/HCPCS: 36415; 80048; 83735

== ENCOUNTER → 2024-04-08 14:36 | Outpatient (CLI) | payer MEDICARE, OTHER, SELFPAY ==
[2019-10-19 10:10] VITALS: BMI 32.6
[2024-04-08 15:55] LABS: Blood Urea Nitrogen 26 mg/dL (9-20); Carbon Dioxide 27 mmol/L (22-32); Chloride 103 mmol/L (98-107); Estimated Glomerular Filt Rate > 60 mL/min (>60); Glucose 80 mg/dL (80-110); HEMOLYSIS < 15 (0-50); Potassium 4.5 mmol/L (3.4-5.1); Sodium 139 mmol/L (137-145)
== END ==
LOC: LAB 14:39
PROVIDERS: PCP Family Medicine; Referring Provider Nurse Practitioner; Visit Provider Nurse Practitioner
DX: Z51.81 Encounter for therapeutic drug level monitoring (principal); Z79.899 Other long term (current) drug therapy
CPT/HCPCS: 36415; 80048

== ENCOUNTER → 2024-10-14 15:38 | Outpatient (CLI) | payer MEDICARE, OTHER, SELFPAY ==
[2019-10-19 10:10] VITALS: BMI 32.6
[2024-10-14 16:18] LABS: BUN Creatinine Ratio 20.6 (6-22); Blood Urea Nitrogen 21 mg/dL (9-20); Calcium 9.4 mg/dL (8.4-10.2); Carbon Dioxide 29 mmol/L (22-32); Chloride 104 mmol/L (98-107); Estimated Glomerular Filt Rate > 60 mL/min (>60); Glucose 84 mg/dL (70-99); HEMOLYSIS < 15 (0-50); Potassium 4.3 mmol/L (3.4-5.1); Sodium 139 mmol/L (137-145)
== END ==
PROVIDERS: PCP Family Medicine; Referring Provider Nurse Practitioner; Visit Provider Nurse Practitioner
DX: I48.0 Paroxysmal atrial fibrillation (principal)
CPT/HCPCS: 36415; 80048

== ENCOUNTER → 2025-02-23 15:23 | Outpatient (CLI) | payer MEDICARE, OTHER, SELFPAY ==
[2019-10-19 10:10] VITALS: BMI 32.6
[2025-02-26 09:09] LABS: PSA, Total 3.6 ng/mL (0.0-4.0)
== END ==
PROVIDERS: PCP Family Medicine; Referring Provider Family Medicine; Visit Provider Urology
DX: R97.20 Elevated prostate specific antigen [PSA] (principal); Z12.5 Encounter for screening for malignant neoplasm of prostate
CPT/HCPCS: 36415; 84153; 84154

== ENCOUNTER → 2025-04-16 12:40 | Outpatient (CLI) | payer MEDICARE, OTHER, SELFPAY ==
[2019-10-19 10:10] VITALS: BMI 32.6
[2025-04-16 13:44] LABS: Blood Urea Nitrogen 22 mg/dL (9-20); Calcium 9.6 mg/dL (8.4-10.2); Carbon Dioxide 28 mmol/L (22-32); Chloride 103 mmol/L (98-107); Estimated Glomerular Filt Rate > 60 mL/min (>60); Glucose 83 mg/dL (70-99); HEMOLYSIS < 15 (0-50); Magnesium 1.9 mg/dL (1.6-2.3); Potassium 4.5 mmol/L (3.4-5.1); Sodium 141 mmol/L (137-145)
== END ==
PROVIDERS: PCP Family Medicine; Referring Provider Nurse Practitioner; Visit Provider Nurse Practitioner
DX: I48.0 Paroxysmal atrial fibrillation (principal); Z51.81 Encounter for therapeutic drug level monitoring; Z79.899 Other long term (current) drug therapy
CPT/HCPCS: 80048; 83735